=== PATIENT | female | born 1990 | race Caucasian/White ===

== ENCOUNTER → 2023-04-12 10:26 | Outpatient (BNVA) | payer OTHER, SELFPAY | PROVIDERS: Visit Provider Physician Assistant Surgical ==

== ENCOUNTER → 2023-08-02 08:06 | Outpatient (BNVA) | payer OTHER, SELFPAY | PROVIDERS: PCP Internal Medicine; Visit Provider Surgery ==

== ENCOUNTER → 2023-09-02 07:59 | Outpatient (BNVA) | payer OTHER, SELFPAY | PROVIDERS: PCP Internal Medicine; Visit Provider Surgery ==

== ENCOUNTER → 2023-09-09 08:57 | Outpatient (BNVA) | payer OTHER, SELFPAY | PROVIDERS: PCP Internal Medicine; Visit Provider Counselor Mental Health ==

== ENCOUNTER → 2023-10-02 08:58 | Outpatient (BNVA) | payer OTHER, SELFPAY | PROVIDERS: PCP Internal Medicine; Visit Provider Surgery ==

== ENCOUNTER → 2023-10-14 08:53 | Outpatient (BNVA) | payer OTHER, SELFPAY | PROVIDERS: PCP Internal Medicine; Visit Provider Counselor Mental Health ==

== ENCOUNTER → 2023-10-25 08:27 | Outpatient (BNVA) | payer OTHER, SELFPAY | PROVIDERS: PCP Internal Medicine; Visit Provider Surgery ==

== ENCOUNTER → 2024-02-24 12:42 | Outpatient (BNVA) | payer OTHER, SELFPAY | PROVIDERS: PCP Internal Medicine; Visit Provider Physician Assistant Surgical ==

== ENCOUNTER → 2024-03-16 12:26 | Outpatient (BNVA) | payer OTHER, SELFPAY | PROVIDERS: PCP Internal Medicine; Visit Provider Physician Assistant Surgical ==

== ENCOUNTER → 2024-05-13 09:12 | Outpatient (BNVA) | payer OTHER, SELFPAY | PROVIDERS: PCP Internal Medicine; Visit Provider Physician Assistant Surgical ==

== ENCOUNTER → 2024-08-24 11:12 | Outpatient (BNVA) | payer OTHER, SELFPAY | PROVIDERS: PCP Internal Medicine; Visit Provider Physician Assistant Surgical ==

== ENCOUNTER 2025-01-05 10:40 | Outpatient (AMB) | payer OTHER, SELFPAY ==
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
--- NOTE | 2025-01-05 18:14 | MHC.OFFVISWM ---
VS Expanded 01/05/25 18:20 Height 5 ft 5 in Weight 134 lb 4 oz BMI 22.3 Body Fat % 24.2 Body Fat Mass 32.5 Fat Free Mass 102 Visceral Fat Rating 5 Body Water % 52 Body Water Mass 69.8 Basal Metabolic Rate/Score 1,381 Intake Visit Reasons: TV Pre Op Panniculectomy 01/20/25 Allergies Cephalosporins Allergy (Verified 01/05/25 18:22) Abdominal Pain erythromycin base [From Pediazole] Allergy (Verified 01/05/25 18:22) Unresponsive Macrolide Antibiotics Allergy (Verified 01/05/25 18:22) Unknown Penicillins [PCN] Allergy (Verified 01/05/25 18:22) Unknown strawberry Allergy (Verified 01/05/25 18:22) Hives sulfisoxazole [From Pediazole] Allergy (Verified 01/05/25 18:22) Unresponsive Augmentin Allergy (Mild, Uncoded 01/05/25 18:22) hives Medication List - Last Reconciled 01/05/25 by Mikie Moore MD bupropion HCl XL 150 mg PO DAILY ciprofloxacin HCl (Cipro) 500 mg PO Q12H clotrimazole 1% 1 appl topical BID docusate sodium (Colace) 100 mg PO DAILY lorazepam 1 mg PO DAILY PRN melatonin 10 mg PO BEDTIME PRN nicotine 1 patch topical DAILY ondansetron 4 mg PO Q12H topiramate 75 mg PO BEDTIME HPI HPI TV Pre Op Panniculectomy 01/20/25: Details: Start time: 2.15pm, End time: 2.45PM I spent 25 minutes speaking with the patient on the phone plus an additional 5 minutes reviewing and updating records for a total of 30 minutes [facility] Medical History (Updated 12/30/24 @ 14:50 by Lorenza Cuevas) Arthritis Back pain Abnormal Pap smear of cervix Constipation Kidney stones Migraines Cough Scoliosis Hypertension Rheumatoid arthritis Insomnia Anxiety Depression DJD (degenerative joint disease) GERD (gastroesophageal reflux disease) Asthma BMI 38.0-38.9,adult Surgical History (Updated 01/05/25 @ 10:18 by Virginia Grider RN) History of sleeve gastrectomy (11/21/23) History of loop electrical excision procedure (LEEP) BMI 35.0-35.9,adult Hx of tonsillectomy History of ear surgery Family History (System 12/30/24 @ 14:50 by Lorenza Cuevas) Mother No problems noted. Father Diabetes Social History (System 12/30/24 @ 14:50 by Lorenza Cuevas) Household Members: Children Housing: House Are you a primary acute care surgeon to a significant other at home: No Do you presently have visiting nurse or other home services: No Alcohol intake: current Alcohol intake frequency: does not drink Patient Tobacco Use Status: Former Tobacco user Tobacco use type: Smokeless Tobacco Second Hand Smoke Exposure: No Telehealth Telehealth Telehealth Platform: Telephone Location of provider rendering services: practice address Location of patient: address on file Patient Identification confirmed using: Name, : Yes Telehealth method: voice only Patient verbally consented to treatment: Yes Patient verbally consented to billing insurance company: Yes Patient informed of any privacy concerns related to visit: Yes Minutes spent on Phone/Video with Pt.: 30 Assessment & Plan Assessment & Plan (1) Excess skin: Code(s): L98.7 - Excessive and redundant skin and subcutaneous tissue Category: Medical Plan: 1. Plan for panniculectomy. Risks of infection, bleeding, asymmetry, wound dehiscence and blood clots were discussed with the patient. 2. You will have a drain the abdomen that may stay a few weeks before it may be removed 3. You will need to be doing sponge baths the first 1-2 weeks. No showers. You need to have help at home to get you up and limit your activities as much as possible for at least the 4-6 weeks after surgery 4. We will arrange for a visiting nurse to come at home to help you with dressing changes and send me pictures of the procedures. We will send at your home supplies for the dressing changes. 5. Change nutritional plan to three premade shakes (mix HALF bottle with 4oz almond milk for each shake), one Quest protein bar and one meal (4 forks of protein and 4 forks of salad or vegetables). This will improve weight loss and healing after surgery. 6. Continue all vitamins 7. Do blood work not fasting any day between Saturday01/11/25 and Saturday01/16/25 and crab picker the antibiotic prescription from your pharmacy 8. Risks and complications were discussed the possibility of bleeding that may require transfusion, loss of the umbilicus, wound dehiscence or infection, dog ears , flap asymmetry. We also discussed the importance of strict avoidance of weight lifting. 9. Avoid aspirin, motrin, ibuprofen, Aleve, Advil, Naproxyn. Only Tylenol is OK Orders: Orders Prothrombin Time INR Today K91.2 - Postsurgical malabsorption, not elsewhere classified, Z90.3 - Acquired absence of stomach [part of] Type and Screen Today K91.2 - Postsurgical malabsorption, not elsewhere classified, Z90.3 - Acquired absence of stomach [part of] IRON PROFILE Today K91.2 - Postsurgical malabsorption, not elsewhere classified, Z90.3 - Acquired absence of stomach [part of] Zinc Today K91.2 - Postsurgical malabsorption, not elsewhere classified, Z90.3 - Acquired absence of stomach [part of] Vitamin D 25-OH Total Today K91.2 - Postsurgical malabsorption, not elsewhere classified, Z90.3 - Acquired absence of stomach [part of] Vitamin B12 Today K91.2 - Postsurgical malabsorption, not elsewhere classified, Z90.3 - Acquired absence of stomach [part of] Vitamin B1 Today K91.2 - Postsurgical malabsorption, not elsewhere classified, Z90.3 - Acquired absence of stomach [part of] Vitamin A Today K91.2 - Postsurgical malabsorption, not elsewhere classified, Z90.3 - Acquired absence of stomach [part of] Comprehensive Met. Panel Today K91.2 - Postsurgical malabsorption, not elsewhere classified, Z90.3 - Acquired absence of stomach [part of] Partial Thromboplastin Time Today K91.2 - Postsurgical malabsorption, not elsewhere classified, Z90.3 - Acquired absence of stomach [part of] Complete Blood Count Auto Diff Today K91.2 - Postsurgical malabsorption, not elsewhere classified, Z90.3 - Acquired absence of stomach [part of] C Reactive Protein Today K91.2 - Postsurgical malabsorption, not elsewhere classified, Z90.3 - Acquired absence of stomach [part of] Hemoglobin A1c Today K91.2 - Postsurgical malabsorption, not elsewhere classified, Z90.3 - Acquired absence of stomach [part of] Ferritin Today K91.2 - Postsurgical malabsorption, not elsewhere classified, Z90.3 - Acquired absence of stomach [part of] Medications: New ondansetron 4 mg PO Q12H 20 tabs 0RF nausea and vomiting R11.0 - Nausea ciprofloxacin HCl (Cipro) 500 mg PO Q12H 60 tabs 2RF L03.90 - Cellulitis, unspecified
[2025-01-05 18:20] VITALS: BMI 22.3
== END 2025-01-05 18:24 | disposition home or self-care (01) ==
LOC: HO.HBS 10:40
PROVIDERS: PCP Internal Medicine; Visit Provider Surgery
DX: L98.7 Excessive and redundant skin and subcutaneous tissue (principal)
CPT/HCPCS: 99499

== ENCOUNTER → 2025-01-05 10:40 | Outpatient (BNVA) | payer OTHER, SELFPAY | PROVIDERS: PCP Internal Medicine; Visit Provider Surgery | DX: K91.2 Postsurgical malabsorption, not elsewhere classified (principal); Z90.3 Acquired absence of stomach [part of]; L03.90 Cellulitis, unspecified; R11.0 Nausea ==

== ENCOUNTER 2025-01-15 09:35 | Outpatient (REF) | payer OTHER, SELFPAY ==
[2025-01-15 10:46] LABS: MANUAL DIFF FLAG NO
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
[2025-01-15 11:45] LABS: Basophils Percent Auto 0.9 % (0-2); Eosinophils Absolute Auto 0.1 X10*3/uL (0.0-0.4); Eosinophils Percent Auto 2.6 % (0-4); Hematocrit 29.7 % (37.0-47.0); Hemoglobin 8.9 g/dl (12.0-16.0); Imm Gran Abs Auto 0.01 X10*3/uL (0.00-0.03); Imm Gran Pct Auto 0.3 % (0.0-0.4); Lymphocytes Absolute Auto 1.2 X10*3/uL (1.2-4.9); Lymphocytes Percent Auto 33.7 % (20-40); Mean Corpuscular Hemoglobin 22.2 pg (27.0-33.0); Mean Corpuscular Volume 74.1 fL (80.0-98.0); Mean Platelet Volume 10.2 fL (9.4-12.3); Monocytes Absolute Auto 0.3 X10*3/uL (0.1-1.2); Monocytes Percent Auto 7.8 % (2-11); Neutrophils Absolute Auto 1.9 x10*3/uL (2.0-8.3); Neutrophils Percent Auto 54.7 % (45-73); Platelet Count 207 X10*3/uL (160-400); Red Blood Count 4.01 X10*6/uL (4.20-5.50); Red Cell Distribution Width 15.7 % (11.0-16.0); White Blood Count 3.5 X10*3/uL (4.8-10.8)
[2025-01-15 11:47] LABS: Prothrombin Time 11.3 SEC (10.9-12.4)
[2025-01-15 11:49] LABS: Partial Thromboplastin Time 28.7 SEC (26.0-36.8)
[2025-01-15 12:36] LABS: Estimated Average Glucose 108 mg/dL; Hemoglobin A1c % 5.4 % (<6.0)
[2025-01-15 12:41] LABS: Alanine Aminotransferase 19 U/L (0-31); Albumin Level 4.3 g/dL (3.5-5.0); Alkaline Phosphatase 48 U/L (39-117); Anion Gap 9 (12-20); Aspartate Amino Transferase 18 U/L (5-31); Bilirubin Total 0.3 mg/dL (0.0-1.0); Blood Urea Nitrogen 19 mg/dL (9-16); C Reactive Protein < 0.04 mg/dL (< or = 0.50); Carbon Dioxide 23 mmol/L (22-29); Chloride 114 mmol/L (96-108); Estimated Glomerular Filt Rate > 60; Ferritin < 2 ng/mL (10-122); Glucose Random 76 mg/dL (60-115); Iron 11 mcg/dL (30-160); Percent Iron Saturation 3 % (15-50); Potassium 3.6 mmol/L (3.3-5.1); Sodium 142 mmol/L (135-145); Total Iron Binding Capacity 324 mcg/dL (228-428); Total Protein 6.9 g/dL (6.5-8.0); Unsaturated Iron Binding 313 ug/dL; Vitamin D 25-OH Total 48.2 ng/mL (>30)
[2025-01-15 13:05] LABS: Vitamin B12 343 pg/mL (200-900)
[2025-01-19 15:48] LABS: Zinc 74 mcg/dL (60-130)
[2025-01-20 00:14] LABS: Vitamin A 86 mcg/dL (38-98)
[2025-01-24 11:44] LABS: Vitamin B1 22 nmol/L (8-30)
== END 2025-01-15 09:36 | disposition home or self-care (01) ==
LOC: HO.LAB 09:35
PROVIDERS: PCP Internal Medicine; Visit Provider Surgery
DX: K91.2 Postsurgical malabsorption, not elsewhere classified (principal); Z90.3 Acquired absence of stomach [part of]
CPT/HCPCS: 36415; 80053; 82306; 82607; 82728; 83036; 83540; 84425; 84590; 84630; 85025; 85610; 85730; 86140

== ENCOUNTER 2025-01-20 07:22 | Day surgery (SDC) | payer OTHER, SELFPAY ==
[2025-01-06 11:13] VITALS: BMI 22.3
--- NOTE | 2025-01-19 08:40 | HO.ANESPROP2 ---
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 (Acute) BMI 32.0-32.9,adult (Acute) Generalized anxiety disorder (Acute) Vitamin B12 deficiency (Acute) Obesity (Acute) Hypertension (Acute) Rheumatoid arthritis (Acute) Insomnia (Acute) Anxiety (Acute) Depression (Acute) DJD (degenerative joint disease) (Acute) GERD (gastroesophageal reflux disease) (Acute) Asthma (Acute) Past Medical History Medical History Arthritis Back pain Abnormal Pap smear of cervix Constipation Kidney stones Migraines Cough Scoliosis Hypertension Rheumatoid arthritis Insomnia Anxiety Depression DJD (degenerative joint disease) GERD (gastroesophageal reflux disease) Asthma BMI 38.0-38.9,adult Family History Family History Mother No problems noted. 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 If so, by whom?: No Advance Directives: No Advance Directives Information Provided: Yes Advance Directives on File: No Recently lost weight without trying: No Patient : No FDLMP: 01/04/2025 : No Poor oral hygiene: No Meds Allergies Allergy/AdvReac Type Severity Reaction Status Date / Time erythromycin base Allergy Severe Unresponsive, Verified 01/06/25 11:09 [From Pediazole] cold, clammy (as an infant) sulfisoxazole Allergy Severe Unresponsive, Verified 01/06/25 11:23 [From Pediazole] cold, clammy (as an ) strawberry Allergy Intermediate Hives Verified 01/06/25 11:09 Cephalosporins Allergy Abdominal Verified 01/05/25 18:22 Pain Macrolide Antibiotics Allergy Unknown Verified 01/05/25 18:22 Penicillins [PCN] Allergy Unknown Verified 01/05/25 18:22 Augmentin Allergy Intermediate hives Uncoded 01/06/25 11:09 Home Medications ?Medication ?Instructions ?Recorded ?Confirmed ?Last Taken ?Type bupropion HCl 150 mg 24 hr tablet, 150 mg PO DAILY 07/31/23 01/06/25 11/16/23 History extended release lorazepam 1 mg tablet 1 mg PO DAILY PRN Anxiety 07/31/23 01/06/25 Unknown History nicotine 14 mg/24 hr daily 1 patch topical DAILY 07/31/23 01/06/25 Unknown History transdermal patch melatonin 10 mg tablet 10 mg PO BEDTIME PRN Insomnia 11/15/23 01/06/25 11/20/23 History topiramate 50 mg tablet 100 mg PO BEDTIME 05/05/24 01/06/25 Unknown History Exam Height,Weight and Vital Signs: Height 5 ft 5 in Weight 60.781 kg Pertinent Lab Results Pertinent Lab Results: Laboratory Tests 01/15/25 10:36 Blood Type O Positive Antibody Screen NEGATIVE Laboratory Tests 01/15/25 10:44 WBC 3.5 L Hgb 8.9 L D Hct 29.7 L Plt Count 207 Sodium 142 Potassium 3.6 Chloride 114 H Carbon Dioxide 23 BUN 19 H Creatinine 0.70 Assessment and Plan Assessment Anesthesia Assessment: Chart Reviewed Final Anesthetic Review Family History of Problems with Anesthesia: No History of Problems with Anesthesia: No Documented by User: Chhaya Siegel MD 01/20/25 09:39 PMFSH Past Medical History Medical History Arthritis Back pain Abnormal Pap smear of cervix Constipation Kidney stones Migraines Cough Scoliosis Hypertension Rheumatoid arthritis Insomnia Anxiety Depression DJD (degenerative joint disease) GERD (gastroesophageal reflux disease) Asthma BMI 38.0-38.9,adult Family History Family History Mother No problems noted. 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 If so, by whom?: No Advance Directives: No Advance Directives Information Provided: Yes Advance Directives on File: No Recently lost weight without trying: No Patient : No FDLMP: 01/04/2025 : No Poor oral hygiene: No Meds Allergies Allergy/AdvReac Type Severity Reaction Status Date / Time erythromycin base Allergy Severe Unresponsive, Verified 01/06/25 11:09 [From Pediazole] cold, clammy (as an ) sulfisoxazole Allergy Severe Unresponsive, Verified 01/06/25 11:23 [From Pediazole] cold, clammy (as an infant) strawberry Allergy Intermediate Hives Verified 01/06/25 11:09 Cephalosporins Allergy Abdominal Verified 01/05/25 18:22 Pain Macrolide Antibiotics Allergy Unknown Verified 01/05/25 18:22 Penicillins [PCN] Allergy Unknown Verified 01/05/25 18:22 Augmentin Allergy Intermediate hives Uncoded 01/06/25 11:09 Home Medications ?Medication ?Instructions ?Recorded ?Confirmed ?Last Taken ?Type bupropion HCl 150 mg 24 hr tablet, 150 mg PO DAILY 07/31/23 01/06/25 11/16/23 History extended release lorazepam 1 mg tablet 1 mg PO DAILY PRN Anxiety 07/31/23 01/06/25 Unknown History nicotine 14 mg/24 hr daily 1 patch topical DAILY 07/31/23 01/06/25 Unknown History transdermal patch melatonin 10 mg tablet 10 mg PO BEDTIME PRN Insomnia 11/15/23 01/06/25 11/20/23 History topiramate 50 mg tablet 100 mg PO BEDTIME 05/05/24 01/06/25 Unknown History Exam Airway Mallampati Class: II TM Dist: >3cm Neck ROM: Full Heart: rrr Lungs: cta Assessment and Plan Assessment Anesthesia Assessment: Anesthesia Plan Discussed Final Anesthetic Review NPO: Yes ASA Class: III (rheumatoid arthritis) Final Preanesthetic Review: No Changes in Pt Med Stat, Meds/Allgs Chart Reviewed, Consent Obtained/Reviewed and Anes Risks/Benef Reviewed Patient Risk: Intermediate Procedure Risk: Intermediate Anesthetic Plan Anesthetic Plan: GA Disposition: Standard PACU
[2025-01-20] VITALS (13 sets, daily range): BP systolic 94–108; BP diastolic 47–69; PULSE 67–102; RESP 15–17; TEMP 36.3–37.2; O2SAT 97–100
[2025-01-20 07:59] LABS: UPreg QC Valid YES; Urine Pregnancy NEGATIVE (NEGATIVE)
[2025-01-20] MEDS: Lactated Ringers 1,000 ML 100 ML IVCONT (08:16)
--- NOTE | 2025-01-20 09:51 | MHC.SHP ---
Pre-Procedural Eval Section A - 24 Hr Update-Section A only Date of Service: 01/20/25 The patient is an INPATIENT: No The patient has been examined within 24 hours of the surgical procedure. The History & Physical has been completed within 30 days and I have reviewed it.: Yes Section B - Complete if H&P > 30 days Chief Complaint: Excessive and redundant skin and subcutaneous tiss Relevant Family History (Specify if Yes): No Relevant Social History: None Present Medications: None Medical History: No relevant PMH History of Previous Operations: Relevant previous surgery/procedure and date(s) (Laparoscopic sleeve gastrectomy) Allergies: Allergies Allergy/AdvReac Type Severity Reaction Status Date / Time erythromycin base Allergy Severe Unresponsive, Verified 01/06/25 11:09 [From Pediazole] cold, clammy (as an ) sulfisoxazole Allergy Severe Unresponsive, Verified 01/06/25 11:23 [From Pediazole] cold, clammy (as an infant) strawberry Allergy Intermediate Hives Verified 01/06/25 11:09 Cephalosporins Allergy Abdominal Verified 01/05/25 18:22 Pain Macrolide Antibiotics Allergy Unknown Verified 01/05/25 18:22 Penicillins [PCN] Allergy Unknown Verified 01/05/25 18:22 Augmentin Allergy Intermediate hives Uncoded 01/06/25 11:09 Review of Systems Sugical H&P ROS: Negative: Constitution, Cardiovascular, Respiratory, Neurological, Psychiatric, Hem-Onc, Allergic/Immunologic, Gastrointestinal, Genitourinary, Musculoskeletal, Integumentary, Endocrine and Eyes/Ears/Nose/Throat Exam Surgical H&P Exam: Normal: HEENT, Normal: Heart, Normal: Lungs, Normal: Extremities, Normal: Abdomen, Normal: Skin and Normal: Neurological Plan Diagnosis/Plan: Unchanged I have reviewed the history and physical and performed a pertinent physical examination on my patient. No changes have occurred unless specified. Time Spent With Patient Time: Total time managing care of this patient today ____ minutes.
--- NOTE | 2025-01-20 10:00 | P.BOP_ITS ---
Brief Operative Note Date of Service: 01/20/25 Pre-op diagnosis: Excess skin Post-op diagnosis: same Procedure: PROCEDURE: Panniculectomy with umbilical transposition and bilateral subcutaneous fat flaps INDICATION: This a 34 year old female who underwent laparoscopic sleeve gastrectomy on 11/21/2023. She had an excellent result achieving a BMI of 22.2 kg/m2 with a total weight loss of 93lbs, or 40.7% of her TBWL. As a result, she has developed panniculitis which has not resolved despite continuous use of clotrimazole ointment as well as skin irritation. On exam she has extreme skin laxity due to massive weight loss, with the abdominal pannus completely hanging 4cm below the pubis. Panniculectomy was recommended. We discussed the two options for the panniculectomy of using a combined vertical and horizontal incisions or just a horizontal (bikini) incision. It was my recommendation to do only horizontal incision based on her body habitus and skin laxity. The patient agreed with this. Risks and complications were discussed with the patient including bleeding, infection, umbilical loss, flap necrosis, asymmetry, dehiscence, seroma, VTE. The patient understood the risks and was in agreement to proceed with surgery. PROCEDURE: The incisions were appropriately marked at the preop area with the patient standing and laying down. After induction of general anesthesia a Sprague catheter and pneumatic compression devices were placed. The patient was prepped and draped in the usual sterile manner and the incisions were marked again and confirmed. The skin was infiltrated with lidocaine and epinephrine. The #10 blade scalpel was used for the large incisions and the #15 blade scalpel for the umbilicus. Cautery was used to divide the subcutaneous tissues until the fascia was identified. Then I used the cautery to separate the pannus from the fascia. The inferior incision was made initially and I mobilized the flap for a several centimeters cephalad to the umbilicus. The umbilicus was incised circumferentially and detached from the surrounding tissues all the way to the fascia while its stalk was preserved. With the patient in reflex position I confirmed that the skin flaps were appropriate and would allow for the tissues to come together with reasonable tension. At that point a horizontal incision was made 4 cm above the umbilicus. #10 blade was used for the skin, cautery for the dermis and for the remaining tissues. A subcutaneous fat flap was raised from the upper skin flap in order to fill the space under the skin and support the closure of the two flaps. In addition the inferior flap was mobilized caudally for a few centimeters to create a space for the subcutaneous fat flap as well as relieve tension from the closure. A circumferential incision was made at the area where the umbilicus would be re-implanted. The umbilicus was appropriately oriented and was delivered through the defect and was secured in place with a Hale. No bleeding was noted anywhere. One ARUNA drain was placed from the left corner of the horizontal incision across the wound and was secured in place with a silk suture. The subcutaneous fat flap was secured under the inferior flap with several interrupted 3.0 Monocryl sutures. The two flaps were brought together and were attached at the midline of the horizontal incision with a #3.0 Monocryl suture. At that point the umbilicus was properly oriented and was re-approximated to the skin with 8 interrupted 3.0 Monocryl sutures. In a similar fashion the skin flaps were re-approximated with multiple 3.0 Monocryl sutures. The skin was closed in all incisions and umbilicus with 4.0 Monocryl sutures. Steri-strips, xeroform gauzes and gauzes were used to cover the incisions. An abdominal binder was also placed. The was awaken and was transferred to the recover room in a stable condition. I was present and performed the entire procedure. Kathy Mullins was the operations administrative assistant. Alejo Moore MD, PhD, FACS Surgeon: Mikie Moore MD Surgeon: Mikie Moore MD Anesthesia: GETA and local Was an Printed Circuit Board Designer used for this Procedure?: No Printed Circuit Board Designer: Colin Mullins Estimated blood loss (mL): 10 IV fluids (mL): 1,250 Urine output (mL): 0 (No Sprague to record output) Pathology: other (Abdominal pannus) Condition: stable Disposition: PACU
--- NOTE | 2025-01-20 10:00 | P.F2F_ITS ---
Service Date Service Date: 01/20/25 Encounter Date of encounter: 01/20/25 Reasons for Services Signs and symptoms assessed: s/p panniculectomy Reason for nursing home: postoperative assessment and/or care Homebound: Leaving the home is medically contraindicated at this time without the asist of a device and/or another person due th the listed conditions above and below. Reason homebound: pain with transfers and unable to drive Certification: Based on the above findings, I certify that this patient is confined to the home and needs intermittent nursing home care, physical therapy and/or speech therapy, or continues to need occupational therapy. The patient is under my care, and I have initiated the establishment of the plan of care. The patient will be followed by a physician who will periodically review the plan of care. Time Spent With Patient Time: Total time managing care of this patient today ____ minutes.
[2025-01-20] MEDS: levoFLOXacin/D5W 250 MG/50 ML PIGGYBACK 50 MG IV ×2 (10:30→11:08)
[2025-01-20] MEDS: ondansetron HCL 4 MG/2 ML VIAL IVPUSH (15:23)
[2025-01-20] MEDS: Acetaminophen 325 MG TABLET 650 MG PO (17:06)
== END 2025-01-20 17:23 | disposition home or self-care (01) ==
PROVIDERS: Nurse Practitioner; PCP Internal Medicine; Visit Provider Surgery
PROC: 0JB80ZZ Excision of Abdomen Subcutaneous Tissue and Fascia, Open Approach (ICD-10-PCS; CPT 15830; principal; 2025-01-20 10:10)
DX: L98.7 Excessive and redundant skin and subcutaneous tissue (principal); M79.3 Panniculitis, unspecified; K91.2 Postsurgical malabsorption, not elsewhere classified; Z90.3 Acquired absence of stomach [part of]; R63.4 Abnormal weight loss; Z68.22 Body mass index [BMI] 22.0-22.9, adult; Z98.84 Bariatric surgery status; I10 Essential (primary) hypertension; K21.9 Gastro-esophageal reflux disease without esophagitis; J45.909 Unspecified asthma, uncomplicated; M06.9 Rheumatoid arthritis, unspecified; Z79.899 Other long term (current) drug therapy; G47.33 Obstructive sleep apnea (adult) (pediatric); Z88.0 Allergy status to penicillin; Z88.1 Allergy status to other antibiotic agents; Z88.2 Allergy status to sulfonamides; Z87.891 Personal history of nicotine dependence
CPT/HCPCS: 15830; 15847; 81025; 86850; 86900; 86901; 88304; C9088; J0131; J1100; J1171; J1756; J1956; J2003; J2004; J2371; J2405; J2704; J3010; J3370

== ENCOUNTER → 2025-01-20 07:22 | Outpatient (BNV) | payer OTHER, SELFPAY | PROVIDERS: PCP Internal Medicine; Visit Provider Physician Assistant Surgical | DX: M79.3 Panniculitis, unspecified (principal); Z98.84 Bariatric surgery status | CPT/HCPCS: 15830; G0180 ==

== ENCOUNTER 2025-01-21 14:17 | Inpatient (IN) | payer OTHER, SELFPAY ==
[2025-01-21 14:31] VITALS: BP 100/52; PULSE 77; RESP 16; TEMP 37.2; O2SAT 100; BMI 22.6
--- NOTE | 2025-01-21 14:41 | ED_ITS ---
HPI - Nausea/Vomiting/Diarrhea General Chief complaint: Nausea/Vomiting/Diarrhea Stated complaint: dehydration surgery yesterday Time Seen by Provider: 01/21/25 15:43 History of Present Illness ED Provider: Kassandra MUNGIUA Narrative: The patient is a 34-year-old female who had bariatric surgery in November. Yesterday she had a panniculectomy as an outpatient. Since getting home she has been eating poorly. She has been very nauseated. She contacted the bariatric surgery team and was advised to come to the emergency room. Here the patient was seen by ARON Sharpe, who recommended IV fluids and a dose of aprepitant. There has been no fever. Related Data Home Medications ?Medication ?Instructions ?Recorded ?Confirmed bupropion HCl 150 mg 24 hr tablet, 150 mg PO DAILY 07/31/23 01/06/25 extended release lorazepam 1 mg tablet 1 mg PO DAILY PRN Anxiety 07/31/23 01/06/25 nicotine 14 mg/24 hr daily 1 patch topical DAILY 07/31/23 01/06/25 transdermal patch melatonin 10 mg tablet 10 mg PO BEDTIME PRN Insomnia 11/15/23 01/06/25 topiramate 50 mg tablet 100 mg PO BEDTIME 05/05/24 01/06/25 Previous Rx's ?Medication ?Instructions ?Recorded docusate sodium 100 mg capsule 100 mg PO DAILY #90 caps 12/15/23 (Colace) clotrimazole 1 % topical cream 1 appl topical BID #90 grams 09/07/24 ciprofloxacin HCl 500 mg tablet 500 mg PO Q12H #60 tabs 01/05/25 (Cipro) ondansetron 4 mg disintegrating 4 mg PO Q12H nausea and vomiting 01/05/25 tablet #20 tabs Allergies Allergy/AdvReac Type Severity Reaction Status Date / Time erythromycin base Allergy Severe Unresponsive, Verified 01/21/25 14:35 [From Pediazole] cold, clammy (as an ) sulfisoxazole Allergy Severe Unresponsive, Verified 01/21/25 14:35 [From Pediazole] cold, clammy (as an infant) strawberry Allergy Intermediate Hives Verified 01/21/25 14:35 Cephalosporins Allergy Abdominal Verified 01/21/25 14:35 Pain Macrolide Antibiotics Allergy Unknown Verified 01/21/25 14:35 Penicillins [PCN] Allergy Unknown Verified 01/21/25 14:35 Augmentin Allergy Intermediate hives Uncoded 01/06/25 11:09 Review of Systems 2 Review of Systems: Yes all other systems are reviewed and are negative [facility] Past Medical History Medical History Arthritis Back pain Abnormal Pap smear of cervix Constipation Kidney stones Migraines Cough Scoliosis Hypertension Rheumatoid arthritis Insomnia Anxiety Depression DJD (degenerative joint disease) GERD (gastroesophageal reflux disease) Asthma BMI 38.0-38.9,adult Surgical History 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 Father Diabetes Social History Social History Household Members: Children Housing: House Are you a primary healthcare economics manager to a significant other at home: Yes (children, will have family help post-op) Do you presently have visiting nurse or other home services: No Alcohol intake: current Alcohol intake frequency: holidays/special occasions only Patient Tobacco Use Status: Former Tobacco user Tobacco use type: Cigarette Smoked in Last 30 Days: No Second Hand Smoke Exposure: No Use of substances other than those prescribed or required for medical reasons: No Advance Directives: Yes Advance Directives Information Provided: Yes Advance Directives on File: No Patient : No Physical Exam 2 Vital Signs: Vital Signs: Last Vital Signs Temp 99.0 F 01/21/25 20:17 Pulse 74 01/21/25 20:17 Resp 16 01/21/25 20:17 BP 95/62 01/21/25 20:17 Pulse Ox 100 01/21/25 20:17 O2 Del Method Room Air 01/21/25 20:17 BMI result Body Mass Index 22.6 Const: Other: The patient is awake and alert but looks tired and worn out. HEENT: Other: Face is symmetrical. Mucous membranes moist. Eyes: General: appearance normal, both eyes and all related structures Neck: Neck: Yes normal visual inspection and Yes full ROM Resp: Effort & Inspection: normal respiratory effort Auscultation: clear to auscultation bilaterally Cardio: Rate: regular rate Rhythm: regular rhythm Heart sounds: S1 normal heart sound present and S2 normal heart sound present GI: Other: The patient is wearing an abdominal binder on her abdomen. She has some surgical drains. She has some mild generalized tenderness but does not seem to have an acute abdomen. Skin: Other: Skin is pale and dry Neuro: Other: The patient is awake and alert but seems tired. Cranial nerves are intact. Moves extremities symmetrically. Extrem: Other: No peripheral edema, no calf swelling or tenderness. Course Course Course Narrative: This is an RME: Additional HPI, ROS, PE not included below will be deferred to primary provider. RME assessment and note performed by: Cassandra Mendieta PA-C This is a 34-year-old female who presents emergency department with concerns for nausea and vomiting. Patient had a panniculectomy yesterday and has been unable to tolerate liquids or foods since. Also endorses headache. Colin hai gave a expect, recommending IV fluids 2-3 L, and Aponvie 32 mg / 4.4 ml (long acting anti-emetic). If she can tolerate PO - can go home. If not, admit. Colin Mullins. Message sent to Colin Mullins to inform him that patient has arrived to the ED. Plan: Labs, further ER eval needed. Medications Administered Generic Name Dose Route Start Last Admin Trade Name Freq PRN Reason Stop Dose Admin Lactated Ringer's 1,000 mls @ 999 mls/hr 01/21/25 20:00 01/21/25 20:20 Lr IV 01/21/25 21:00 999 mls/hr .Q1H1M KEYUR Administration Discontinued Medications Generic Name Dose Route Start Last Admin Trade Name Freq PRN Reason Stop Dose Admin Aprepitant 32 mg 01/21/25 17:00 01/21/25 16:33 Aprepitant 32 Mg/4.4 Ml Vial IVPUSH 01/21/25 17:01 32 mg ONCE ONE Administration Sodium Chloride 1,000 mls @ 999 mls/hr 01/21/25 15:30 01/21/25 15:57 Ns IV 01/21/25 17:30 Infused .Q1H1M KEYUR Infusion Lactated Ringer's 1,000 mls @ 999 mls/hr 01/21/25 16:00 01/21/25 18:45 Lr IV 01/21/25 17:00 Infused .Q1H1M KEYUR Infusion Lactated Ringer's 1,000 mls @ 999 mls/hr 01/21/25 16:00 01/21/25 18:45 Lr IV 01/21/25 17:00 Infused .Q1H1M KEYUR Infusion Acetaminophen 1,000 mg in 100 mls @ 400 mls/hr 01/21/25 17:30 01/21/25 18:45 Ofirmev IV 01/21/25 17:44 Infused ONCE ONE Infusion Medical Decision Making Medical Decision Making MDM Narrative: The patient is a 34-year-old woman who had a panniculectomy yesterday by the bariatric surgery team. Since getting home she has had a lot of nausea and vomiting. She comes in today because of fatigue and inability to tolerate oral intake. The patient was given IV fluids and antiemetics. She continues to be nauseated even with a small sips of liquids. She will be admitted for further management. Lab Data 01/21/25 14:41 01/21/25 14:41 Labs: Lab Results 01/21/25 Range/Units 14:41 WBC 6.4 (4.8-10.8) X10*3/uL RBC 3.72 L (4.20-5.50) X10*6/uL Hgb 8.2 L (12.0-16.0) g/dl Hct 27.2 L (37.0-47.0) % MCV 73.1 L (80.0-98.0) fL MCH 22.0 L (27.0-33.0) pg MCHC 30.1 L (31.0-35.0) g/dl RDW 16.0 (11.0-16.0) % Plt Count 153 L D (160-400) X10*3/uL MPV 9.4 (9.4-12.3) fL Immature Gran % (Auto) 0.3 (0.0-0.4) % Neut % (Auto) 81.1 H (45-73) % Lymph % (Auto) 10.6 L (20-40) % Sol[place] % (Auto) 7.8 (2-11) % Eos % (Auto) 0.0 (0-4) % Baso % (Auto) 0.2 (0-2) % Lymph # (Auto) 0.7 L (1.2-4.9) X10*3/uL [place] # (Auto) 0.5 (0.1-1.2) X10*3/uL Eos # (Auto) 0.0 (0.0-0.4) X10*3/uL Baso # (Auto) 0.0 (0.0-0.2) X10*3/uL Abs Immat Gran (auto) 0.02 (0.00-0.03) X10*3/uL Absolute Neuts (auto) 5.2 (2.0-8.3) x10*3/uL Absolute Nucleated RBC 0.000 (0.0-0.012) X10*3/uL Nucleated RBC % (auto) 0.0 (0.0-0.2) /100WBC Sodium 142 (135-145) mmol/L Potassium 3.5 (3.3-5.1) mmol/L Chloride 116 H (96-108) mmol/L Carbon Dioxide 21 L (22-29) mmol/L Anion Gap 9 L (12-20) BUN 7 L (9-16) mg/dL Creatinine 0.70 (0.5-1.4) mg/dL Estim Creat Clear Calc 101.8 Estimated GFR > 60 Random Glucose 92 (60-115) mg/dL Calcium 8.9 (8.4-10.2) mg/dL Magnesium 1.9 (1.6-2.6) mg/dL Total Bilirubin 0.3 (0.0-1.0) mg/dL AST 14 (5-31) U/L ALT 14 (0-31) U/L Alkaline Phosphatase 42 (39-117) U/L Total Protein 6.8 (6.5-8.0) g/dL Albumin 4.1 (3.5-5.0) g/dL Beta HCG, Quant < 2 mIU/mL Discharge Plan Discharge Clinical Impression: Post-operative nausea and vomiting Patient Disposition: Admitted As Inpatient Print Language: Canadian
[2025-01-21 14:48] LABS: MANUAL DIFF FLAG NO
[2025-01-21 14:50] LABS: Basophils Percent Auto 0.2 % (0-2); Hematocrit 27.2 % (37.0-47.0); Hemoglobin 8.2 g/dl (12.0-16.0); Imm Gran Abs Auto 0.02 X10*3/uL (0.00-0.03); Imm Gran Pct Auto 0.3 % (0.0-0.4); Lymphocytes Absolute Auto 0.7 X10*3/uL (1.2-4.9); Lymphocytes Percent Auto 10.6 % (20-40); Mean Corpuscular HGB Conc 30.1 g/dl (31.0-35.0); Mean Corpuscular Volume 73.1 fL (80.0-98.0); Mean Platelet Volume 9.4 fL (9.4-12.3); Monocytes Absolute Auto 0.5 X10*3/uL (0.1-1.2); Monocytes Percent Auto 7.8 % (2-11); Neutrophils Absolute Auto 5.2 x10*3/uL (2.0-8.3); Neutrophils Percent Auto 81.1 % (45-73); Platelet Count 153 X10*3/uL (160-400); Red Blood Count 3.72 X10*6/uL (4.20-5.50); White Blood Count 6.4 X10*3/uL (4.8-10.8)
[2025-01-21 15:10] LABS: Alanine Aminotransferase 14 U/L (0-31); Albumin Level 4.1 g/dL (3.5-5.0); Alkaline Phosphatase 42 U/L (39-117); Anion Gap 9 (12-20); Aspartate Amino Transferase 14 U/L (5-31); Bilirubin Total 0.3 mg/dL (0.0-1.0); Blood Urea Nitrogen 7 mg/dL (9-16); Calcium 8.9 mg/dL (8.4-10.2); Carbon Dioxide 21 mmol/L (22-29); Chloride 116 mmol/L (96-108); Creatinine Clr Calc Pharmacy 101.8; Estimated Glomerular Filt Rate > 60; Glucose Random 92 mg/dL (60-115); Magnesium 1.9 mg/dL (1.6-2.6); Potassium 3.5 mmol/L (3.3-5.1); Sodium 142 mmol/L (135-145); Total Protein 6.8 g/dL (6.5-8.0)
[2025-01-21 15:14] LABS: HCG Quantitative < 2 mIU/mL
--- NOTE | 2025-01-21 15:25 | PC.NURSE ---
PER BARIATRIC PROVIDER, PT HAS BEEN APPROVED BY PHARMACY TO RECEIVE APONVI ANTIEMETIC IN THE ED , TYPICALLY RESERVED FOR POST OP.
[2025-01-21] MEDS: 0.9 % Sodium Chloride 1,000 ML 999 ML IV (15:38)
[2025-01-21] MEDS: Lactated Ringers 1,000 ML 999 ML IV ×3 (16:00→20:20)
--- NOTE | 2025-01-21 16:25 | PC.NURSE ---
Unable to give nausea med in ED due to hard stop in computer. Nursing sup, pharmacy and provider all aware. Awaiting a plan, not given at this time.
[2025-01-21] MEDS: Aprepitant 32 MG/4.4 ML VIAL IVPUSH (16:33)
--- NOTE | 2025-01-21 16:35 | PC.NURSE ---
Order to give med, TWO RNS VERIFYING DUE TO UNABLE TO SCAN. VERIFIED NAME, , ALLERGIES AND HOW TO GIVE MED. SECOND RN NELLIE AT BEDSIDE VERIFYING. MED ADMINISTERED AT 1633
--- NOTE | 2025-01-21 16:52 | PC.NURSE ---
PHARMACY ABLE TO PRINT NEW LABEL. MED SCANNED.
[2025-01-21] MEDS: Acetaminophen 1,000 MG/100 ML PIGGYBACK 400 MG IV (17:52)
--- NOTE | 2025-01-21 19:30 | PC.NURSE ---
This sports writer assumed care of this Pt at 1900. Pt A&Ox3, reports nausea/ dry heaving, reports 8/10 ABD pain from surgical site. Pt has ABD binder. Pt ambulates with 1 assist to BR with slow steady gait.
[2025-01-21 20:17] VITALS: BP 95/62; PULSE 74; RESP 16; TEMP 37.2; O2SAT 100
--- NOTE | 2025-01-21 20:30 | PM.HPGS ---
History of Present Illness History of Present Illness Date of Service: 01/22/25 Chief complaint: post op nausea Narrative: Ana Seals is a 34 year old female, underwent uneventful panniculectomy 01/20/25. Due to significant iron deficiency anemia she did recieve IV iron intraoperatively. Tolerated procedure well and recovered uneventfully. Discharged home and developed nausea and vomiting. Seen by VNA this morning to change dressing and was reported to have intact incision without any significant abnormality of the incision or drain. Approximately 60 ML serosang fluid emptied from the collection bulb. Pt c/o continued nausea and dry heaving to VNA, could not tolerat po zofran, felt weak and lightheaded. Instructed to go to the ER for IVF and anti-emetics. In the ER appeared clinically dry and was given IVF and anti-emetics and continued to have persistent nausea and so the decision was to admit her for continued care. Overnight, she continue to have some intermittent nausea. This morning complained of migrainous type headache. [facility] Past Medical History Medical History Arthritis Back pain Abnormal Pap smear of cervix Constipation Kidney stones Migraines Cough Scoliosis Hypertension Rheumatoid arthritis Insomnia Anxiety Depression DJD (degenerative joint disease) GERD (gastroesophageal reflux disease) Asthma BMI 38.0-38.9,adult Family History Family History Mother No problems noted. 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) History of loop electrical excision procedure (LEEP) BMI 35.0-35.9,adult Hx of tonsillectomy History of ear surgery Social History Social History Household Members: Children Housing: House Are you a primary health care legal assistant to a significant other at home: Yes (children, will have family help post-op) Do you presently have visiting nurse or other home services: No Alcohol intake: current Alcohol intake frequency: holidays/special occasions only Patient Tobacco Use Status: Former Tobacco user Tobacco use type: Cigarette Smoked in Last 30 Days: No Second Hand Smoke Exposure: No Use of substances other than those prescribed or required for medical reasons: No Advance Directives: Yes Advance Directives Information Provided: Yes Advance Directives on File: No Patient : No Meds Allergies Allergy/AdvReac Type Severity Reaction Status Date / Time erythromycin base Allergy Severe Unresponsive, Verified 01/21/25 14:35 [From Pediazole] cold, clammy (as an infant) sulfisoxazole Allergy Severe Unresponsive, Verified 01/21/25 14:35 [From Pediazole] cold, clammy (as an ) strawberry Allergy Intermediate Hives Verified 01/21/25 14:35 Cephalosporins Allergy Abdominal Verified 01/21/25 14:35 Pain Macrolide Antibiotics Allergy Unknown Verified 01/21/25 14:35 Penicillins [PCN] Allergy Unknown Verified 01/21/25 14:35 Augmentin Allergy Intermediate hives Uncoded 01/06/25 11:09 Active Medications: Current Medications Lactated Ringer's (Lr) 1,000 mls @ 999 mls/hr IV .Q1H1M KEYUR Stop: 01/21/25 21:00 Last Admin: 01/21/25 20:20 Dose: 999 mls/hr Dextrose/Sodium Chloride (D5ns) 1,000 mls @ 150 mls/hr IVCONT .Q6H40M KEYUR Acetaminophen (Ofirmev) 1,000 mg in 100 mls @ 16.7 mls/hr IV .Q6H KEYUR Folic Acid 1 mg/ Sodium (Chloride) 50.2 mls @ 100.4 mls/hr IV ONCE ONE Stop: 01/21/25 21:29 Thiamine HCl 100 mg/ Sodium (Chloride) 101 mls @ 202 mls/hr IV ONCE ONE Stop: 01/21/25 20:46 Lorazepam (Lorazepam 2 Mg/Ml Vial) 0.5 mg IVPUSH DAILY PRN PRN Reason: Anxiety Melatonin (Melatonin 3 Mg Tablet) 9 mg PO ONCE PRN PRN Reason: Insomnia Metoclopramide HCl (Metoclopramide Hcl 10 Mg/2 Ml Vial) 10 mg IVPUSH Q6H PRN PRN Reason: Nausea no effect from zofran Ondansetron HCl (Ondansetron Hcl 4 Mg/2 Ml Vial) 4 mg IVPUSH Q8H PRN PRN Reason: Nausea Pantoprazole Sodium (Pantoprazole Sodium 40 Mg/10 Ml Vial) 40 mg IVPUSH BID@0630,1630 KEYUR Sodium Chloride (0.9 % Sodium Chloride Flush 3 Ml Syringe) 3 ml IVFLUSH QSHIFT KEYUR Topiramate (Topiramate 100 Mg Tablet) 100 mg PO BEDTIME ONE Stop: 01/21/25 21:01 Home Medications ?Medication ?Instructions ?Recorded ?Confirmed ?Last Taken ?Type bupropion HCl 150 mg 24 hr tablet, 150 mg PO DAILY 07/31/23 01/21/25 01/19/25 History extended release nicotine 14 mg/24 hr daily 1 patch topical DAILY 07/31/23 01/21/25 01/19/25 History transdermal patch melatonin 10 mg tablet 10 mg PO BEDTIME PRN Insomnia 11/15/23 01/21/25 11/20/23 History propranolol 10 mg tablet 10 mg PO BID 01/21/25 01/21/25 01/19/25 History topiramate 50 mg tablet 50 mg PO BID 01/21/25 01/21/25 01/19/25 History Physical Exam Vital Signs: Vital Signs: Last Vital Signs Temp 99.0 F 01/21/25 20:17 Pulse 74 01/21/25 20:17 Resp 16 01/21/25 20:17 BP 95/62 01/21/25 20:17 Pulse Ox 100 01/21/25 20:17 O2 Del Method Room Air 01/21/25 20:17 BMI result Body Mass Index 22.6 Const: General: ill appearing Nutritional Appearance: well nourished Orientation/consciousness: patient oriented x3 HEENT: Head: Yes normal to inspection Resp: Effort & Inspection: normal respiratory effort Auscultation: clear to auscultation bilaterally Cardio: Rate: regular rate Rhythm: regular rhythm GI: Inspection: Yes incision (Transverse and umbilical incisions intact, no evidence infection) Auscultation: normal bowel sounds Neuro: General: patient oriented x3 Extrem: General: Yes no pedal edema Results Results Labs: Short CBC 01/21/25 Range/Units 14:41 WBC 6.4 (4.8-10.8) X10*3/uL Hgb 8.2 L (12.0-16.0) g/dl Hct 27.2 L (37.0-47.0) % Plt Count 153 L D (160-400) X10*3/uL BMP 01/21/25 14:41 Sodium 142 Potassium 3.5 Chloride 116 H Carbon Dioxide 21 L BUN 7 L Creatinine 0.70 Calcium 8.9 Liver Function 01/21/25 Range/Units 14:41 Total Bilirubin 0.3 (0.0-1.0) mg/dL AST 14 (5-31) U/L ALT 14 (0-31) U/L Alkaline Phosphatase 42 (39-117) U/L Albumin 4.1 (3.5-5.0) g/dL Assessment and Plan (1) Post-operative nausea and vomiting: Status: Acute Patient received aponvie yesterday. Continues with postoperative nausea, continues p.r.n. ondansetron. Remains NPO, given IV fluids. We will continue to monitor closely, as she improves, consideration for trial clear liquids (2) Anemia: Qualifiers: Anemia type: iron deficiency Status: Acute Combination of both iron-deficiency and menorrhagia. Patient received IV iron intraoperatively. H&H drifted down slowly however I suspect there may be some dilutional effect. This may additionally be contributing to her nausea and headache. We will continue to follow and if no significant improvement, consideration for transfusion 1 unit packed red blood cells this afternoon. (3) Headache: Status: Acute Patient continues to receive IV acetaminophen. She states that she takes Advil or Aleve at home. Given recent surgery, this is not advisable due to increased risk of bleeding. We will give 1 dose Imitrex subcutaneous. (4) S/P panniculectomy: Status: Acute Patient's incisions are all healing nicely. Continue with dressing changes and VNA once she goes home. Plan Patient seen and examined with Dr. Moore. Quality Stroke Does the patient have a stroke diagnosis?: No VTE Prior VTE?: No VTE Risk Level:: Surgical - low VTE Device Contraindication: N/A - Device Ordered VTE Drug Contraindication: Treatment Not Indicated Procedures Date of Service Date of Service: 01/22/25
[2025-01-21] MEDS: Pantoprazole Sodium 40 MG/10 ML VIAL IVPUSH (21:37)
[2025-01-21] MEDS: Folic Acid 1 MG in 0.9 % Sodium Chloride 50 ML 100.4 MG IV (21:39)
[2025-01-21] MEDS: Nicotine 14 MG PATCH.TD24 TRANSDERMA (21:41)
[2025-01-21] MEDS: Cyanocobalamin (Vitamin B-12) 1,000 MCG/ML VIAL 1000 MCG IM (21:42)
--- NOTE | 2025-01-21 21:45 | PHA.MEDREC ---
Addendum entered by Gregory Horvath 01/21/25 21:50: reviewed Original Note: Pharmacy Consult ? Medication Reconciliation Pharmacy has completed the medication reconciliation. Spoke to patient to confirm med list. Patient states she is no longer taking Ciprofloxacin 500 mg ( has not started yet), Clotrimazole 1 % cream, and Lorazepam 1 mg. Patient states she last took her medications 2 days ago.
[2025-01-21] MEDS: Thiamine HCL 100 MG in 0.9 % Sodium Chloride 100 ML 202 MG IV (21:51)
[2025-01-21] MEDS: Dextrose 5 % and 0.9 % NaCl 1,000 ML 150 ML IVCONT (22:27)
[2025-01-22] MEDS: Acetaminophen 1,000 MG/100 ML PIGGYBACK 16.7 MG IV ×4 (00:46→23:49)
[2025-01-22 00:53] VITALS: BP 95/58; PULSE 68; RESP 18; O2SAT 98
[2025-01-22] MEDS: ondansetron HCL 4 MG/2 ML VIAL IVPUSH ×3 (04:37→22:58)
[2025-01-22] MEDS: Dextrose 5 % and 0.9 % NaCl 1,000 ML 150 ML IVCONT ×4 (04:48→22:26)
[2025-01-22 05:01] LABS: MANUAL DIFF FLAG NO
[2025-01-22 05:14] LABS: Basophils Percent Auto 0.4 % (0-2); Eosinophils Percent Auto 0.2 % (0-4); Hematocrit 23.8 % (37.0-47.0); Hemoglobin 7.4 g/dl (12.0-16.0); Imm Gran Abs Auto 0.01 X10*3/uL (0.00-0.03); Imm Gran Pct Auto 0.2 % (0.0-0.4); Lymphocytes Absolute Auto 1.3 X10*3/uL (1.2-4.9); Mean Corpuscular HGB Conc 31.1 g/dl (31.0-35.0); Mean Corpuscular Hemoglobin 22.8 pg (27.0-33.0); Mean Corpuscular Volume 73.2 fL (80.0-98.0); Mean Platelet Volume 10.1 fL (9.4-12.3); Monocytes Absolute Auto 0.5 X10*3/uL (0.1-1.2); Monocytes Percent Auto 9.7 % (2-11); Neutrophils Absolute Auto 3.6 x10*3/uL (2.0-8.3); Neutrophils Percent Auto 65.5 % (45-73); Platelet Count 139 X10*3/uL (160-400); Red Blood Count 3.25 X10*6/uL (4.20-5.50); White Blood Count 5.5 X10*3/uL (4.8-10.8)
[2025-01-22 05:19] LABS: Anion Gap 7 (12-20); Blood Urea Nitrogen 8 mg/dL (9-16); Calcium 8.1 mg/dL (8.4-10.2); Carbon Dioxide 21 mmol/L (22-29); Chloride 119 mmol/L (96-108); Creatinine Clr Calc Pharmacy 127.3; Estimated Glomerular Filt Rate > 60; Glucose Random 108 mg/dL (60-115); Potassium 3.3 mmol/L (3.3-5.1); Sodium 144 mmol/L (135-145)
[2025-01-22] MEDS: Pantoprazole Sodium 40 MG/10 ML VIAL IVPUSH ×2 (05:32→15:41)
--- NOTE | 2025-01-22 05:45 | PC.NURSE ---
Pt ambulated to BR with 1 assist, slow steady gait. Assisted with ARUNA drain log. 80 mL of red fluid drained.
[2025-01-22 08:02] VITALS: BP 102/62; PULSE 73; RESP 12; TEMP 36.9; O2SAT 100
[2025-01-22] MEDS: SUMAtriptan succinate 6 MG/0.5 ML VIAL SUBCUT ×2 (09:35→15:35)
--- NOTE | 2025-01-22 12:44 | MHC.CM.PN ---
PT FROM HOME WITH FAMILY, ADDRESS VERIFIED. PT ACTIVE WITH [facility], RETURN REFERRAL PLACED PT DOES NOT USE DME PT SIGNED HCP NAMING MATHEW SUTTON [phone] [facility] [phone] PT'S PCP RICKY NEWELL IS LISTED AND CORRECT DCP- [facility], VIA [facility]IVATE TRANSPORT
[2025-01-22 15:13] VITALS: BP 106/54; PULSE 69; RESP 16; TEMP 36.7; O2SAT 100
[2025-01-22 19:19] VITALS: BP 94/70; PULSE 65; RESP 18; TEMP 37.2; O2SAT 98
[2025-01-22] MEDS: LORazepam 2 MG/ML VIAL 0.5 MG IVPUSH (23:00)
[2025-01-23] VITALS (13 sets, daily range): BP systolic 88–111; BP diastolic 50–68; PULSE 54–69; RESP 16–18; TEMP 36.3–37.2; O2SAT 96–99
--- NOTE | 2025-01-23 02:17 | PC.NURSE ---
Pt seen on bed at shift change , c/o 10/10 MYRICK, with soft BP 94/70 by manual, 84/54 by machine, denies any nausea,Colin Mullins was notified, pt was reeducated of the treatment plan, no changes of meds at this time, Lorazepam was offered, pt was asleep when revisited, few hors later ,pt c/o nausea and dry heaving, prn Zofran was given, offered Lorazepam and complied. Routine vitals around 12mn, noted pt with BP 88/56 manually, pt was drowsy, Colin Mullins was updated, no further order made.
[2025-01-23] MEDS: Dextrose 5 % and 0.9 % NaCl 1,000 ML 150 ML IVCONT ×2 (04:54→11:07)
[2025-01-23] MEDS: Pantoprazole Sodium 40 MG/10 ML VIAL IVPUSH ×2 (05:56→17:58)
[2025-01-23] MEDS: Acetaminophen 1,000 MG/100 ML PIGGYBACK 16.7 MG IV (05:56)
--- NOTE | 2025-01-23 10:30 | P.PNGS_ITS ---
Subjective Subjective Date of Service: 01/23/25 Patient reports: feels better Interval history: 34-year-old female, continues with mild headache and intermittent nausea. She was up ambulating in the hallway although felt somewhat lightheaded. No syncope. She reports moving her bowels this morning without difficulty. She is tolerating clear liquids but did have some difficulty with jello last night causing nausea. Headache last night treated with lorazepam with affect. Physical Exam 2 Vital Signs: Vital Signs: Last Vital Signs Temp 98.2 F 01/23/25 07:39 Pulse 63 01/23/25 07:39 Resp 16 01/23/25 07:39 BP 94/54 L 01/23/25 07:39 Pulse Ox 99 01/23/25 07:39 O2 Del Method Room Air 01/23/25 07:39 BMI result Body Mass Index 22.6 Const: General: no acute distress and well developed Resp: Effort & Inspection: normal respiratory effort Auscultation: clear to auscultation bilaterally Cardio: Rate: regular rate Rhythm: regular rhythm Skin: Other: Transverse and umbilical incisions are clean, dry, intact. No evidence of infection or dehiscence. Objective Data Active Medications Dextrose/Sodium Chloride (D5ns) 1,000 mls @ 75 mls/hr IVCONT .[id number] [facility] Last Admin: 01/23/25 04:54 Dose: 150 mls/hr Documented By: SAHARA Acetaminophen (Ofirmev) 1,000 mg in 100 mls @ 16.7 mls/hr IV .Q6H [facility] Last Admin: 01/23/25 05:56 Dose: 16.7 mls/hr Documented By: SAHARA Lorazepam (Lorazepam 2 Mg/Ml Vial) 0.5 mg IVPUSH DAILY PRN PRN Reason: Anxiety Last Admin: 01/22/25 23:00 Dose: 0.5 mg Documented By: SAHARA Melatonin (Melatonin 3 Mg Tablet) 9 mg PO ONCE PRN PRN Reason: Insomnia Metoclopramide HCl (Metoclopramide Hcl 10 Mg/2 Ml Vial) 10 mg IVPUSH Q6H PRN PRN Reason: Nausea no effect from zofran Ondansetron HCl (Ondansetron Hcl 4 Mg/2 Ml Vial) 4 mg IVPUSH Q8H PRN PRN Reason: Nausea Last Admin: 01/22/25 22:58 Dose: 4 mg Documented By: MARTINAILBrennon Pantoprazole Sodium (Pantoprazole Sodium 40 Mg/10 Ml Vial) 40 mg IVPUSH BID@0630,1630 [facility] Last Admin: 01/23/25 05:56 Dose: 40 mg Documented By: MARTINAILBrennon Sodium Chloride (0.9 % Sodium Chloride Flush 3 Ml Syringe) 3 ml IVFLUSH QSHIFT [facility] Last Admin: 01/23/25 08:24 Dose: Not Given Documented By: LEATHA Non-Admin Reason: IV Running Labs 01/22/25 04:16 01/22/25 04:16 Labs: Laboratory Results - last 24 hr 01/23/25 10:23 Crossmatch See Detail Procedures Date of Service Date of Service: 01/23/25 Progress Note: A&P Assessment and plan (1) S/P panniculectomy: Status: Acute Assessment and Plan: Postop day 2, status post panniculectomy. Dressing change today. Incisions clean, dry, intact. We will continue with VNA services once discharged home. (2) Headache: Status: Acute Assessment and Plan: History of migrainous type headache in early adulthood. Previously taking Imitrex. She received Imitrex yesterday with good effect. One more dose this morning. We will send her home with oral medications and she will follow up with her primary care physician. (3) Anemia: Status: Acute Assessment and Plan: No evidence of acute blood loss. She does have a history of menorrhagia. She is followed by gynecology regarding this and has trialed oral contraceptives in the past with success. These were discontinued at the time of her previous surgery. She also has evidence of iron-deficiency for which she received 200 mg Venofer intraoperatively. Given her persistent anemia, feelings of lightheadedness with ambulation and recent surgery, the decision is made to transfuse 2 units packed red blood cells. Patient has been consented as such. (4) Post-operative nausea and vomiting: Status: Acute Assessment and Plan: Nausea improving. She did receive aponvie in the emergency room and since been controlled with p.r.n. Zofran. We will continue and additionally continue with oral Zofran once discharged home. Plan Case discussed with Dr. Moore. Time Spent With Patient Time: Total time managing care of this patient today ____ minutes. Quality Stroke Does the patient have a stroke diagnosis?: No VTE Prior VTE?: No VTE Risk Level:: Surgical - low VTE Device Contraindication: N/A - Device Ordered VTE Drug Contraindication: Treatment Not Indicated
[2025-01-23] MEDS: SUMAtriptan succinate 6 MG/0.5 ML VIAL SUBCUT (11:03)
[2025-01-23] MEDS: Nicotine 7 MG PATCH.TD24 TRANSDERMA (11:05)
[2025-01-23] MEDS: diphenhydrAMINE HCL 25 MG CAPSULE PO (11:54)
--- NOTE | 2025-01-23 15:09 | PC.NURSE ---
1st unit of blood is done, pt. tolerated it well, no adverse reactions.
--- NOTE | 2025-01-23 16:52 | PM.DS ---
DS: Providers Provider Date of Service: 01/23/25 Date of admission: 01/21/25 20:18 Date of discharge: 01/23/25 Primary care physician: Armin Kline MD DS: Diagnosis Discharge Diagnosis (1) S/P panniculectomy: Status: Acute (2) Headache: Status: Acute (3) Anemia: Status: Acute (4) Post-operative nausea and vomiting: Status: Acute DS: Summary Hospital Course Hospital Course: 34 yo female underwent uneventful panniculectomy on 01/21/25. Pre-operatively she was found to have iron deficiency anemia and she was givan Venofer intra-operatively. She was discharged home but developed nausea with vomiting and was asked to come to the ER POD 1. She was found to have clinical dehydration and was admitted to the hospital. She was given IVF, anti-emetics and developed a MYRICK for which she was treated with Imitrex with good effect. POD 2 she continued with MYRICK and feeling lightheaded and the decision was to transfuse 2 units PRBC. She felt much better and tolerated her protein shakes. MYRICK improved and she ambulated on the unit without difficulty. She was feeling well and was able to be discharged home. Anemia: She reports menorrhagia for which she ahs been followed by filling separator. She was on OCP but these were stopped. She also reports an intolerance to IUD due to cysts. She states she will f/u with filling separator and likely will need a solution for her menorrhagia. As above tolerated transfusion 2 units PRBC without incident. MYRICK: She reports a history of headaches in the past for which she was prescribed imitrex with good effect. She states that previously she would take NSAIDS for MYRICK but given recent surgery that was not an option. Will send home with Rx for Imitrex prn. Tobacco abuse: Gives a history of smoking 1/2 PPD but quit a year ago. She has been on Nicoderm 14 mg patches since then. Dose reduced to 7 mg and will give 4 week Rx for 7 mg patches and then dc. Panniculectomy: Continue VNA services at home and ABX to start tomorrow. f/u in office as scheduled. Time Attestation Total time managing care of this patient today: 25 mintues. Discharge Coordination Time (in mins): 25 Quality: Safe Use of Opioids Does Pt have an Active Cancer Diagnosis on the Problem List?: No Quality: Stroke Does the patient have a stroke diagnosis?: No Physical Exam Vital Signs: Vital Signs: Last Vital Signs Temp 98.7 F 01/23/25 16:19 Pulse 62 01/23/25 16:19 Resp 16 01/23/25 16:19 BP 102/56 L 01/23/25 16:19 Pulse Ox 97 01/23/25 16:00 O2 Del Method Room Air 01/23/25 16:00 BMI result Body Mass Index 22.6 DS: Data Data Completed and Pending Completed studies during hospitalization [Text1]: Procedures Excision of Stomach, Percutaneous Endoscopic Approach, Vertical (11/21/23) Release Peritoneum, Percutaneous Endoscopic Approach (11/21/23) Labs on day of discharge: Laboratory Results - last 24 hr 01/23/25 10:23 Blood Type O Positive Antibody Screen NEGATIVE Crossmatch See Detail Discharge Plan Discharge Anticipated Discharge Date/Time: 01/23/25 19:03 Patient Disposition: Home Health Service Discharge Diagnosis: post operative nausea with dehydration Referrals: Armin Kline MD [Primary Care Provider] - 1 Week Discharge Medications: New nicotine 7 mg/24 hr Patch 24 Hour 7 mg transdermal DAILY 30 Days Qty: 30 0RF sumatriptan succinate [Imitrex] 50 mg tablet See Rx Instructions .ROUTE .COMPLEX Qty: 30 0RF Rx Instructions: take 1 tab at onset of headache; if no relief may repeat 1 tab after at least 2 hrs; max = 4 tabs/24 hr Continued docusate sodium [Colace] 100 mg capsule 100 mg PO DAILY Qty: 90 0RF melatonin 10 mg Tablet 10 mg PO BEDTIME PRN (Reason: Insomnia) propranolol 10 mg tablet 10 mg PO BID topiramate 50 mg tablet 50 mg PO BID bupropion HCl 150 mg tablet extended release 24 hr 150 mg PO DAILY ciprofloxacin HCl [Cipro] 500 mg tablet 500 mg PO Q12H Qty: 60 2RF ondansetron 4 mg tablet,disintegrating 4 mg PO Q12H Qty: 20 0RF Discontinued nicotine 14 mg/24 hr patch 24 hour 1 patch topical DAILY Discharge Orders: Discharge Order (Routine); Ordered 01/23/25 Ordered By: Colin Mullins Activity on Discharge: As discussed with Dr Moore Stand Alone Forms: Patient Portal Discharge page Print Language: Croatian Care Plan Goals: heal from panniculectomy Health Concerns: headache, anemia, s/p panniculectomy Plan of Treatment: as previously discussed about care after panniculectomy Assessment: stable for d/c home s/p panniculectomy, IVF, transfusion 2 units PRBC
[2025-01-23] MEDS: 0.9 % Sodium Chloride Flush 3 ML SYRINGE IVFLUSH (17:57)
[2025-01-23] MEDS: Acetaminophen 325 MG TABLET 650 MG PO (17:58)
== END 2025-01-23 18:31 | disposition home health service (06) | DRG 813 ==
LOC: HO.ED 20:35 → HO.EDOVER 22:44 → HO.S3 01-22 13:20
PROVIDERS: Physician Assistant Medical; Physician Assistant Surgical; Admitting Provider Surgery; Emergency Provider Emergency Medicine; PCP Internal Medicine; Visit Provider Surgery
DX: T88.8XXA Other specified complications of surgical and medical care, not elsewhere classified, initial encounter (principal); D50.9 Iron deficiency anemia, unspecified; E86.0 Dehydration; R51.9 Headache, unspecified; R11.2 Nausea with vomiting, unspecified; Y83.8 Other surgical procedures as the cause of abnormal reaction of the patient, or of later complication, without mention of misadventure at the time of the procedure; Z79.899 Other long term (current) drug therapy
CPT/HCPCS: 36415; 80048; 80053; 83735; 84702; 85025; 86850; 86900; 86901; 86923; 99218; 99285; C9145; J0131; J2060; J2405; J2470; J3030; J3411; J3420; J7120; P9016

== ENCOUNTER → 2025-01-21 20:18 | Outpatient (BNV) | payer OTHER, SELFPAY | PROVIDERS: Admitting Provider Surgery; Emergency Provider Emergency Medicine; PCP Internal Medicine; Visit Provider Physician Assistant Surgical | DX: R11.2 Nausea with vomiting, unspecified (principal); D64.9 Anemia, unspecified; R51.9 Headache, unspecified; Z98.890 Other specified postprocedural states | CPT/HCPCS: 99222; 99238; 99499 ==

== ENCOUNTER 2025-01-28 10:07 | Outpatient (AMB) | payer OTHER, SELFPAY ==
--- NOTE | 2025-01-28 10:35 | A.OFFVIS_ITS ---
VS Expanded 01/28/25 10:42 BP 97/52 L Blood Pressure Location Lt brachial Blood Pressure Position Sitting Pulse 60 Pulse Oximetry 100 Intake Visit Reasons: (OV) s/p Panniculectomy 01/20/25 Allergies erythromycin base [From Pediazole] Allergy (Severe, Verified 01/28/25 10:42) Unresponsive, cold, clammy (as an infant) sulfisoxazole [From Pediazole] Allergy (Severe, Verified 01/28/25 10:42) Unresponsive, cold, clammy (as an infant) strawberry Allergy (Intermediate, Verified 01/28/25 10:42) Hives Cephalosporins Allergy (Verified 01/28/25 10:42) Abdominal Pain Macrolide Antibiotics Allergy (Verified 01/28/25 10:42) Unknown Penicillins [PCN] Allergy (Verified 01/28/25 10:42) Unknown Augmentin Allergy (Intermediate, Uncoded 01/28/25 10:42) hives HPI Comments Details: Patient is a 34-year-old female who returns to the office today in follow-up. She is status post panniculectomy performed on 01/20/2025. She did require hospitalization 01/21/25 through 01/23/25 due to persistent nausea with vomiting. She was given IV antiemetics. Also found to have significant anemia which was known preoperatively. She was ultimately transfused 2 units packed red blood cells with significant improvement. Since being discharged home, Patient was seen by her primary care physician yesterday. Reportedly having blood pressure 80s over 60s. Instructed to go to the emergency room. She did not go. She additionally states that she is having her menstrual. This week of which it is heavy. 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 She reports proximally 100 serosanguineous from the collection bulb. She is taking her meal plan including 2-3 shakes per day, 1-2 bars per day and a meal. She continues antibiotics. 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 Father Diabetes Social History Household Members: Family Housing: House Are you a primary manager critical care to a significant other at home: Yes (children, will have family help post-op) Do you presently have visiting nurse or other home services: Yes (Paula BIGGS) 75 years or older and lives alone: No Alcohol intake: current Alcohol intake frequency: holidays/special occasions only Patient Tobacco Use Status: Former Tobacco user Tobacco use type: Cigarette Second Hand Smoke Exposure: No Advance Directives Date on File: 01/22/25 service: No Physical Exam Skin Other: Transverse abdominal incision and umbilical incisions healing nicely. Umbilicus is viable. Assessment & Plan Assessment & Plan (1) S/P panniculectomy: Code(s): Z98.890 - Other specified postprocedural states Category: Surgical Plan: Patient is doing well. Continue monitoring output. Continue meal plan. Continue antibiotics. Return to clinic 1 week.
[2025-01-28 10:42] VITALS: BP 97/52; PULSE 60; O2SAT 100
--- OUTSIDE RECORDS SUMMARY | 2025-01-28 12:54 | XMS_ITS | Encounter Summary ---
Author Organization [facility] Address [address] [place] [address] Care Team Providers Care Inside Sales Account Representative Name Role Phone Armin Kline MD Primary Care Provider Reason for Visit * Reason Onset Date Comments Hospital Follow-up 01/25/2025 Encounter Details Date Type Department Care Team (Late st Contact Info) Description 01/25/2025 Telephone Adult Medicine [facility] [address] [place] [phone] Armin Kline MD [address] [place] [address] Hospital Follow-up Social History Tobacco Use Types Packs/Day Years Used Date Smoking Tobacco: Former Cigarettes Smokeless Tobacco: Never Alcohol Use Standard Drinks/Week Comments Yes 0 (1 standard drink = 0.6 oz pur e alcohol) Comments No Sex and Gender Information Value Date Recorded Sex Assigned at Female 01/27/2025 5:58 PM EDT Legal Sex Female 5:00 PM EST Gender Identity Female 01/27/2025 5:58 PM EDT Sexual Orientation Choose not to disclose 2024 5:58 PM EDT documented as of this encounter Progress Notes * Allegra Pat RN - 01/25/2025 3:56 PM EDT Spoke with the pt and scheduled hosp f/u for 01/27 at 1:45 * Malissa Townsend - 01/25/2025 1:39 PM EDT Hospital/ER follow up appointment needed Hospital patient was treated at: [facility] Was this only an ER visit or was the patient admitted to the hospital? Admitted to the hospital/kept overnight Date of visit if ER visit only: If patient was admitted what was the date of discharge? 01/23/25 Reason/diagnosis for visit or stay: pt was admitted for blood transfusion after a procedure When was the patient told to follow up? saima Was visit or stay related to an injury? If yes, what was the date of injury (DOI)? No If yes, was the injury due to: Not 3rd green party related documented in this encounter Plan of Treatment Upcoming Encounters Date Type Department Care Team (Late st Contact Info) Description 02/05/2025 10:30 AM EDT Office Visit Adult Medicine [address] [phone] Armin Kline MD [address] [place] [address] 02/18/2025 9:30 AM EDT Office Visit Obstetrics and Gynecology - [address] [phone] Daniela Harper CNM [address] [place] [phone] documented as of this encounter Visit Diagnoses Not on filedocumented in this encounter Care Teams Inside Sales Account Representative Relationship Specialty Start Date End Date Armin Kline MD [address] [place] [id number] PCP - General Internal Medicine 10/05/24 documented as of this encounter
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
--- OUTSIDE RECORDS SUMMARY | 2025-01-28 12:54 | XMS_ITS | Encounter Summary ---
Author Organization [facility] Address [address] [place] [address] Care Team Providers Care Employee Relation Manager Name Role Phone Armin Kline MD Primary Care Provider Encounter Details Date Type Department Care Team (Late st Contact Info) Description 01/28/2025 Telephone Adult Medicine [facility] [address] [place] [address] Armin Kline MD [address] [place] [address] Social History Tobacco Use Types Packs/Day Years [...] as of this encounter Progress Notes * Lizeth Magaña RN - 01/28/2025 9:17 AM EDT Pt. Was seen in office with low BP 80/50 slight dizziness and sent to ER for evaluation. Pt. Marianae was there for 2 hours and had labs . When they told her is was going to be 7hr wait she left . She has taken her BP 78/68 then rechecked 1 hour later 96/68 Pt. Denies feeling lightheaded or weak I'm fine I advised if having low BP she should follow her PCP advise and go to ER and stay. Pt. States she is going to her surgeon office for a post op apt. With her and feels fine no clamminess, no weakness, no lightheadedness. I made a follow up apt. And asked the pt. To follow up with us after this apt. And any need to change this office visit . I reiterated the importance of returning to the ER for low bp and any associated symptoms cp,weakness, sob lightheadedness pt. Verbalized understanding * Armin Kline MD - 01/28/2025 8:44 AM EDT Please call patient to schedule ER follow-up. documented in this encounter Plan of Treatment Upcoming Encounters Date Type Department Care Team (Late st Contact Info) Description 02/05/2025 10:30 AM EDT Office Visit Adult Medicine [address] [phone] Armin Kline MD [address] [place] [address] 02/18/2025 9:30 AM EDT Office Visit Obstetrics and Gynecology - [address] [phone] Daniela Harper CNM [address] [place] [address] documented as of this encounter Visit Diagnoses Not on filedocumented in this encounter Care Teams Employee Relation Manager Relationship Specialty Start Date End Date Armin Kline MD [address] [place] [address] PCP - General Internal Medicine 10/05/24 documented as of this encounter
--- OUTSIDE RECORDS SUMMARY | 2025-01-28 12:54 | XMS_ITS | Encounter Summary ---
Author Organization [facility] Address [address] [place] [address] Care Team Providers Care Medical Oncologist Name Role Phone Armin Kline MD Primary Care Provider Reason for Visit * Reason Comments Dizziness weak Weakness - Generalized Encounter Details Date Type Department Care Team (Late st Contact Info) Description 01/27/2025 3:09 PM EDT - 01/27/2025 6:[address] [facility] Emergency [address] [place] [address] Discharge Disposition: Home or Self Care Social History Tobacco Use Types Packs/Day Years [...] PM EDT documented as of this encounter Last Filed Vital Signs Vital Sign Reading [...] Mass Index 23.3 01/27/2025 3:23 PM EDT documented in this encounter Medications at Time of Discharge albuterol HFA (PROAIR HFA ; PROVENTIL HFA ; VENTOLIN HFA) 90 mcg/actuation inhaler Inhale 2 Puffs into the lungs every 4 hours as needed for Shortness of Breath for up to 180 days. 07/16/2019 B complex-vitamin C-folic acid (JAVAN-BERTO) 1-60-300 mg-mg-mcg tablet Take 1 tablet by mouth 1 (one) time each day with breakfast. buPROPion XL (WELLBUTRIN XL) 150 mg 24 hr tablet Take 1 tablet (150 mg total) by mouth 1 (one) time each day in the morning. 11/14/2022 cyanocobalamin (VITAMIN B-12) 100 mcg tablet Take by mouth. famotidine (PEPCID) 20 mg tablet Take 1 Tablet by mouth 2 times daily as needed for Heartburn for up to 180 days. 10/24/2022 ferrous sulfate 325 mg (65 mg iron) EC tablet Take 1 tablet (325 mg total) by mouth 1 (one) time each day with breakfast. Do not crush, chew, or split. 180 each 1 01/27/2025 melatonin 5 mg tablet 02/17/2024 topiramate (TOPAMAX) 50 mg tablet 03/12/2023 documented as of this encounter Discharge Disposition Disposition Code Departure Means Destination Comment s Home or Self Care LWT . THIS NURSE ADVISED PT TO STAY TO BE SEEN BUT PT SIS NOT documented in this encounter Progress Notes * Emily López RN - 01/27/2025 5:32 PM EDT Pt to fec nurse and reported she is leaving . Pt encouraged to stay and to the pt reported charge Aware of her needs but pt insisted on leaving. Pt reports she has an appointment to see her dr in [place] and she will return to er with concerns * Debra Saavedra RN - 01/27/2025 3:20 PM EDT Pt to ed reports dizziness, lightheaded and headache started last Saturday. Pt reports has a tummy tuck . Pt reports got iron trasnfusion during her procedure, was discharged home and then seen by visiting nurse and had low blood pressure. Pt went back to ER was given fluids and tylenol without relief. Pt did receive blood transfusion eventually and then was discharged. Pt reports period started as well and drains remain in abdomen as well documented in this encounter Plan of Treatment Upcoming Encounters Date Type Department Care Team (Late st Contact Info) Description 02/05/2025 10:30 AM EDT Office Visit Adult Medicine [facility] [address] [place] [address] Armin Kline MD [address] [place] [address] 02/18/2025 9:30 AM EDT Office Visit Obstetrics and Gynecology - [address] [phone] Daniela Harper [address] [address] documented as of this encounter Procedures Procedure Name Priority Date/Time Associated Diagnosis Comments CBC WITH AUTO DIFFERENTIAL STAT 01/27/2025 3:33 PM EDT CBC AND DIFFERENTIAL STAT 01/27/2025 3:33 PM EDT TYPE AND SCREEN STAT 01/27/2025 3:33 PM EDT BASIC METABOLIC PANEL STAT 01/27/2025 3:33 PM EDT documented in this encounter Results * (ABNORMAL) CBC auto differential (01/27/2025 3:33 PM EDT) [facility] Signature WBC 5.7 4.8 - 10.8 K/mcL LAB HEMETOLOGY METHOD 01/27/2025 4:00 PM [facility] RBC 4.30 3.80 - 4.80 M/mcL LAB [facility]OLOG[facility] Hemoglobin 10.3(L) 11.5 - 16.0 g/dL LAB HEMETOLOGY METHOD 01/27/2025 4:00 PM [facility] Hematocrit 33.9(L) 35.0 - 47.0 % LAB HEMETOLOGY METHOD 01/27/2025 4:00 PM [facility] MCV 79.8 79.0 - 98.0 FL LAB HEMETOLOGY METHOD 01/27/2025 4:00 PM [facility] MCH 24.2(L) 27.0 - 32.0 pcg LAB HEMETOLOGY METHOD 01/27/2025 4:00 PM [facility] MCHC 30.4(L) 32.0 - 37.0 g/dL LAB HEMETOLOGY METHOD 01/27/2025 4:00 PM [facility] RDW 19.5(H) 11.0 - 15.0 % LAB HEMETOLOGY METHOD 01/27/2025 4:00 PM [facility] Platelets 204 130 - 400 K/mcL LAB HEMETOLOGY METHOD 01/27/2025 4:00 PM [facility] MPV 9.9 7.0 - 11.0 FL LAB HEMETOLOGY METHOD 01/27/2025 4:00 PM [facility] NRBC 0.0 <1.0 % LAB HEMETOLOGY METHOD 01/27/2025 4:00 PM [facility] NRBC Absolute 0.00 <0.10 K/mcL LAB HEMETOLOGY METHOD 01/27/2025 4:00 PM [facility] Neutrophils Relative 61.5 % LAB HEMETOLOGY METHOD 01/27/2025 4:00 PM [facility] Lymphocytes Relative 26.5 % LAB HEMETOLOGY METHOD 01/27/2025 4:00 PM [facility] Monocytes Relative 7.4 % LAB HEMETOLOGY METHOD 01/27/2025 4:00 PM [facility] Eosinophils Relative 3.7 % LAB HEMETOLOGY METHOD 01/27/2025 4:00 PM [facility] Basophils Relative 0.7 % LAB HEMETOLOGY METHOD 01/27/2025 4:00 PM [facility] Immature Granulocytes Relative 0.2 % LAB HEMETOLOGY METHOD 01/27/2025 4:00 PM [facility] Neutrophils Absolute 3.47 1.50 - 7.00 K/mcL LAB HEMETOLOGY METHOD 01/27/2025 4:00 PM [facility] Lymphocytes Absolute 1.50 1.00 - 5.00 K/mcL LAB HEMETOLOGY METHOD 01/27/2025 4:00 PM [facility] Monocytes Absolute 0.42 0.20 - 1.00 K/mcL LAB HEMETOLOGY METHOD 01/27/2025 4:00 PM [facility] Eosinophils Absolute 0.21 0.00 - 0.50 K/mcL LAB HEMETOLOGY METHOD 01/27/2025 4:00 PM [facility] Basophils Absolute 0.04 0.00 - 0.20 K/mcL LAB HEMETOLOGY METHOD 01/27/2025 4:00 PM [facility] Immature Granulocytes Absolute 0.01 0.00 - 0.03 K/mcL LAB HEMETOLOGY METHOD 01/27/2025 4:00 PM EDT [facility] Blood Venous blood specimen / Unknown Venipuncture / Unknown 01/27/2025 3:33 PM EDT 01/27/2025 3:44 PM EDT us Haidersaadia Coon MD LAB BLOOD ORDERABLES Final Resu lt [facility] [address] [place] [address], [place] [phone] * Type and screen (01/27/2025 3:33 PM EDT) ABO Group O 01/27/2025 4:58 PM EDT [facility] Rh Type Positive 01/27/2025 4:58 PM EDT [facility] Antibody Screen Negative 01/27/2025 4:58 PM EDT [facility] Blood Venous blood specimen / Unknown Venipuncture / Unknown 01/27/2025 3:33 PM EDT 01/27/2025 3:44 PM EDT us Haider Coon MD LAB BLOOD BANK TEST ORDERABLES Final Result Performing Organization Address [facility]/ZIP Co de Phone Number [facility] [address] [place] [address], [place] [phone] * (ABNORMAL) Basic metabolic panel (01/27/2025 3:33 PM EDT) Sodium 141 133 - 145 mmol/L LAB CHEMISTRY METHOD 01/27/2025 4:31 PM EDT [facility] Potassium 3.6 3.5 - 5.5 mmol/L LAB CHEMISTRY METHOD 01/27/2025 4:31 PM EDT [facility] Chloride 115(H) 96 - 110 mmol/L LAB CHEMISTRY METHOD 01/27/2025 4:31 PM EDT [facility] CO2 22 21 - 32 mmol/L LAB CHEMISTRY METHOD 01/27/2025 4:31 PM EDT [facility] Anion Gap 4 3 - 11 LAB CHEMISTRY METHOD 01/27/2025 4:31 PM EDT [facility] Glucose 89 70 - 100 mg/dL LAB CHEMISTRY METHOD 01/27/2025 4:31 PM EDT [facility] BUN 21 5 - 25 mg/dL LAB CHEMISTRY METHOD 01/27/2025 4:31 PM EDT [facility] Creatinine 0.70 0.50 - 1.10 mg/dL LAB CHEMISTRY METHOD 01/27/2025 4:31 PM EDT [facility] eGFR 117 >=60 mL/min/1. 73m2 LAB CHEMISTRY METHOD 01/27/2025 4:31 PM EDT [facility] Comment:Calculation based on the??Chronic Kidney Disease Epidemiology Collaboration (CKD-EPI) equation refit??without adjustment for race. BUN/Creatinine Ratio 30.0 LAB CHEMISTRY METHOD 01/27/2025 4:31 PM EDT [facility] Calcium 8.4(L) 8.5 - 10.5 mg/dL LAB CHEMISTRY METHOD 01/27/2025 4:31 PM EDT [facility] Blood Venous blood specimen / Unknown Venipuncture / Unknown 01/27/2025 3:33 PM EDT 01/27/2025 3:44 PM EDT us Haider Coon MD LAB BLOOD ORDERABLES Final Resu lt [facility] [address] [place] [address], documented in this encounter Visit Diagnoses Not on filedocumented in this encounter Administered Medications Inactive Administered Medications - up to 3 most recent administrations Medication Order MAR Action Action Date Dose Rate Site acetaminophen (TYLENOL) tablet 650 mg 650 mg, oral, Once, On Sat01/27/25 at 1649, For 1 dose Given 01/27/2025 4:52 PM EDT 650 mg documented in this encounter Active and Recently Administered Medications Times are shown in EDT. Scheduled Medication Order 01/25/2025 01/26/2025 01/27/2025 acetaminophen (TYLENOL) tablet 650 mg (COMPLETED) 650 mg, oral, Once, On Sat01/27/25 at 1649, For 1 dose 1652 (Given - Provid er: Debra Saavedra RN) documented in this encounter Orders Medications Ordered That Chris ht Not Have Been Administered Count Last Ordered Date First Ordered Date acetaminophen (TYLENOL) 325 mg tablet - ADS Override Pull 1 01/27/2025 acetaminophen (TYLENOL) tablet 650 mg 1 documented in this encounter Care Teams Medical Oncologist Relationship Specialty Start Date End Date Armin Kline MD [address] [place] [address] PCP - General Internal Medicine 10/05/24 documented as of this encounter
--- OUTSIDE RECORDS SUMMARY | 2025-01-28 12:54 | XMS_ITS | Encounter Summary ---
Author Organization [facility] Address [address] [place] [address] Care Team Providers Care Transformer Tester Name Role Phone Armin Kline MD Primary Care Provider Reason for Visit * Reason Comments Hospital Follow-up [facility] Encounter Details Date Type Department Care Team (Late st Contact Info) Description 01/27/2025 2:00 PM EDT Office Visit Adult Medicine [facility] [address] [place] [address] Armin Kline MD [address] [place] [address] Hospital discharge follow-up (Primary Dx); Iron deficiency anemia due to chronic blood loss; Hypotension due to hypovolemia; Symptomatic anemia Social History Tobacco Use Types Packs/Day Years [...] Sign Reading Time Taken Comments Blood Pressure 80/50 01/27/2025 1:49 PM EDT Pulse 69 01/27/2025 1:49 PM EDT Temperature 36.6 ??C (97.9 ??F) 01/27/2025 1:49 PM ED T Respiratory Rate 14 01/27/2025 1:49 PM EDT Oxygen Saturation - - Inhaled Oxygen Concentration - - Weight 63.6 kg (140 lb 3.2 oz) 01/27/2025 1:49 P M EDT Height 167.6 cm (5' 6 ) 01/27/2025 1:49 PM EDT Body Mass Index 22.63 01/27/2025 1:49 PM EDT documented in this encounter Ordered Prescriptions Prescription Sig Dispense Quantity Refills Last Filled Start Date End Date ferrous sulfate 325 mg (65 mg iron) EC tablet Take 1 tablet (325 mg total) by mouth 1 (one) time each day with breakfast. Do not crush, chew, or split. 180 each 1 01/27/2025 documented in this encounter Progress Notes * Allegra Pat RN - 01/27/2025 2:00 PM EDT Expect called * Armin Kline MD - 01/27/2025 2:00 PM EDT CHIEF COMPLAINT: Hospital Follow-up ([facility]) IDENTIFIER: Ana Seals is a 34 y.o. old female. HPI: Patient presents today for re-evaluation after hospitalization for anemia, postop nausea and vomiting at [facility] from January 21, 2025 until January 23, 2025. Information was extracted from the discharge notes. The history was reviewed for accuracy and confirmed by myself. I have reconciled the current and discharge meds. 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 She has been following with [facility] weight management. Patient underwent uneventful panniculectomy on January 21, 2025 at [facility]. .. Preoperative, she was found to be iron deficient and received Venofer intraoperatively. She was discharged after the surgery but developed nausea and vomiting was asked to come to the ER. She was found to be dehydrated andwas admitted to the hospital. She was given IV fluids, antiemetics as well as Imitrex for headache.She was found to be anemic with hemoglobin of 6 and was transfused 2 units of PRBC. Hemoglobin was 7.6 on discharge. Blood pressure did improve slightly. She was assessed to have infectious anemia inthe setting of menorrhagia. Previously had IUD which she could not tolerate. She was on OCPs which were discontinued by her PITCH FLAKER. She is currently scheduled to see PITCH FLAKER on February 18. She currently has an abdominal drain, scheduled to have post appointment tomorrow. However she is complaining of dizziness, headache as well as feeling unsteady. Feels tired as well. She is currentlyhaving menstrual periods as well. She states she feels worse as compared to when she was admitted at [facility]. In our records, he she had a CBC done with us in October 2022 and her CBC was normal. ROS: RESPIRATORY: No cough, wheezing or shortness of breath CARDIOVASCULAR: Negative for chest pain, leg swelling and palpitations GI: Negative for abdominal discomfort, changes in bowel habits, blood in stool or black stools PAST MEDICAL HISTORY: Patient Active Problem List Diagnosis Date Noted Abdominal pain 09/30/2024 ADHD (attention deficit hyperactivity disorder) 09/30/2024 Bilateral kidney stones 09/20/2023 Fatty liver 09/20/2023 Degenerative disc disease, lumbar 09/08/2020 PTSD (post-traumatic stress disorder) 01/08/2019 Obesity (BMI 30-39.9) 08/02/2016 JOSE III (cervical intraepithelial neoplasia grade III) with severe dysplasia 06/04/2016 Post depression 11/10/2014 Migraine 01/12/2014 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 08/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 Dysthymic disorder 08/21/2007 Mild intermittent asthma 05/27/2007 Past Surgical History: Procedure Laterality Date OTHER SURGICAL HISTORY PROCEDURE: HISTORICAL EAR SURGERY; COMMENT: also had tubes in ears OTHER SURGICAL HISTORY PROCEDURE: INJECT NERVE BLOCK; LUMB/SACR,ADDL; COMMENT: nerve block in back for ankle issues OTHER SURGICAL HISTORY 09/2015 PROCEDURE: HISTORICAL D&C; COMMENT: incomplete Ab OTHER SURGICAL HISTORY 11/21/2023 PROCEDURE: HISTORY OTHER; COMMENT: Sleeve gastrectomy with gastropexy TONSILLECTOMY PROCEDURE: HISTORICAL TONSILLECTOMY SOCIAL HISTORY: Social History Tobacco Use Smoking status: Former Current packs/day: 0.30 Types: Cigarettes Smokeless tobacco: Never Substance Use Topics Alcohol use: Yes FAMILY HISTORY: Family History Problem Relation Name Age of Onset Other (Other: blood clot) Paternal Grandmother Prostate cancer Paternal Grandfather Diabetes Mother Hypertension Mother Kidney failure Mother Diabetes Father Hypertension Father No Known Problems Brother Diabetes Brother Dementia Maternal Grandmother Stroke Maternal Grandfather Coronary artery disease Maternal Grandfather Asthma Daughter Asthma Son Other (Other: ODD) Son Asthma Other ?uncle as a child Diabetes Other MGGM Blindness Neg Hx Cataracts Neg Hx Glaucoma Neg Hx Macular degeneration Neg Hx Strabismus Neg Hx Other cancer Neg Hx Family Status Relation Name Status PGM PGF Mother Father Alive adopted Brother Alive Brother (Not Specified) MGM MGF Daughter Alive Son Alive Other (Not Specified) Other (Not Specified) Neg Hx (Not Specified) No partnership data on file MEDICATIONS DISCONTINUED/REORDERED: Medications Discontinued During This Encounter Medication Reason buPROPion XL (WELLBUTRIN XL) 300 mg 24 hr tablet Patient Discharge clotrimazole (LOTRIMIN) 1 % cream Patient Discharge dicyclomine (BENTYL) 10 mg capsule Patient Discharge LORazepam (ATIVAN) 1 mg tablet Patient Discharge norethindrone (NARCISO,BELLE,RHONDA,MICRONOR) 0.35 mg tablet Patient Discharge phentermine (ADIPEX-P) 37.5 mg tablet Patient Discharge topiramate (TOPAMAX) 25 mg tablet Patient Discharge traZODone (DESYREL) 50 mg tablet Patient Discharge ACTIVE MEDICATIONS: Outpatient Medications Marked as Taking for the 01/27/25 encounter (Office Visit) with Armin Kline MD Medication Sig Dispense Refill albuterol HFA (PROAIR HFA ; PROVENTIL HFA ; VENTOLIN HFA) 90 mcg/actuation inhaler Inhale 2 Puffs into the lungs every 4 hours as needed for Shortness of Breath for up to 180 days. buPROPion XL (WELLBUTRIN XL) 150 mg 24 hr tablet Take 1 tablet (150 mg total) by mouth 1 (one) timeeach day in the morning. cyanocobalamin (VITAMIN B-12) 100 mcg tablet Take by mouth. famotidine (PEPCID) 20 mg tablet Take 1 Tablet by mouth 2 times daily as needed for Heartburn for up to 180 days. melatonin 5 mg tablet topiramate (TOPAMAX) 50 mg tablet (Patient taking differently: 2 tablets (100 mg total).) ALLERGIES: Augmentin [amoxicillin-pot clavulanate], Cefzil [cefprozil], Cephalosporins, Macrolide antibiotics,and Penicillins PHYSICAL EXAM: Blood pressure 80/50, pulse 69, temperature 36.6 ??C (97.9 ??F), temperature source Temporal, resp.rate 14, height 1.676 m (66 ), weight 63.6 kg (140 lb 3.2 oz), last menstrual period 01/26/2025. Body mass index is 22.63 kg/m??. Plan is deferred until next visit APPEARANCE: in mild distress HEART: RRR with normal S1 and S2, no murmurs, no gallops, no JVD appreciated CHEST: non-tender LUNG: clear to auscultation bilaterally LABS: As mentioned above IMPRESSION: 1. Hospital discharge follow-up 2. Iron deficiency anemia due to chronic blood loss 3. Hypotension due to hypovolemia 4. Symptomatic anemia PLAN: Patient with anemia secondary to menorrhagia. I did not see any iron labs done at [facility].Most likely has an iron deficiency anemia due to the chronic blood loss due to menorrhagia as well as recent surgery. Iron deficiency most likely worsened given her history of bariatric surgery as well. She has not been on any iron supplements. In the office today her blood pressure is low and she is symptomatic with dizziness, headache. Likely she would benefit from IV fluids and I advised her to go to the ER. Initially she did not want togo but given above-mentioned history and her vital signs in the office, she agreed. Discussed risk of not pursuing emergent treatment at this time. Patient will follow-up after the ER/hospital discharge. Medication and lab orders: Orders Placed This Encounter Procedures CBC and differential Comprehensive metabolic panel Iron and TIBC Ferritin Armin Kline MD on 01/27/2025 at 2:46 PM EDT documented in this encounter Plan of Treatment Upcoming Encounters Date Type Department Care Team (Late st Contact Info) Description 02/05/2025 10:30 AM EDT Office Visit [place] [address] [place], [place] [phone] Armin Kline MD [address] [place], [place] 02/18/2025 9:30 AM EDT Office Visit Obstetrics and Gynecology - [address] [phone] Daniela Harper, [address] Scheduled Orders Name Type Priority Associated Diagnoses Orde r Schedule CBC and differential Lab STAT Iron deficiency anemia due to chronic blood loss 1 Occurrences starting 01/27/2025 until 01/27/2026 Comprehensive metabolic panel Lab Routine Iron deficiency anemia due to chronic blood loss 1 Occurrences starting 01/27/2025 until 01/27/2026 Iron and TIBC Lab Routine Iron deficiency anemia due to chronic blood loss 1 Occurrences starting 01/27/2025 until 01/27/2026 Ferritin Lab Routine Iron deficiency anemia due to chronic blood loss 1 Occurrences starting 01/27/2025 until 01/27/2026 documented as of this encounter Visit Diagnoses Diagnosis Hospital discharge follow-up- Primary Other follow-up examination Iron deficiency anemia due to chronic blood loss Iron deficiency anemia secondary to blood loss (chronic) Hypotension due to hypovolemia Symptomatic anemia documented in this encounter Discontinued Medications Medication Sig Discontinue Reason Start Date End Da te buPROPion XL (WELLBUTRIN XL) 300 mg 24 hr tablet Patient Discharge 11/14/2022 01/27/2025 clotrimazole (LOTRIMIN) 1 % cream Apply 1 Application topically 2 (two) times a day. Patient Discharge 03/16/2024 01/27/2025 dicyclomine (BENTYL) 10 mg capsule Patient Discharge 10/24/2022 01/27/2025 LORazepam (ATIVAN) 1 mg tablet Patient Discharge 06/17/2020 01/27/2025 norethindrone (NARCISO,BELLE,RHONDA, MICRONOR) 0.35 mg tablet Take 1 tablet (0.35 mg total) by mouth 1 (one) time each day. Patient Discharge 03/15/2023 01/27/2025 phentermine (ADIPEX-P) 37.5 mg tablet Patient Discharge 01/27/2025 topiramate (TOPAMAX) 25 mg tablet Patient Discharge 02/26/2024 01/27/2025 traZODone (DESYREL) 50 mg tablet Patient Discharge 03/10/2024 01/27/2025 documented as of this encounter Historical Medications * This list may reflect changes made after this encounter. B complex-vitamin C-folic acid (JAVAN-BERTO) 1-60-300 mg-mg-mcg tablet Take 1 tablet by mouth 1 (one) time each day with breakfast. added in this encounter Care Teams Transformer Tester Relationship Specialty Start Date End Date Armin Kline MD [address] [place] [address] PCP - General Internal Medicine 10/05/24 documented as of this encounter
== END 2025-01-28 11:06 | disposition home or self-care (01) ==
LOC: HO.HBS 10:07
PROVIDERS: PCP Internal Medicine; Visit Provider Physician Assistant Surgical
DX: Z98.890 Other specified postprocedural states (principal)
CPT/HCPCS: 99024

== ENCOUNTER → 2025-01-28 10:07 | Outpatient (BNVA) | payer OTHER, SELFPAY | PROVIDERS: PCP Internal Medicine; Visit Provider Physician Assistant Surgical | DX: Z87.2 Personal history of diseases of the skin and subcutaneous tissue (principal); Z98.890 Other specified postprocedural states | CPT/HCPCS: 99212 ==

== ENCOUNTER 2025-02-04 12:51 | Outpatient (AMB) | payer OTHER, SELFPAY ==
[2025-02-04 12:58] VITALS: BP 107/59; PULSE 69; O2SAT 100
--- NOTE | 2025-02-04 12:58 | A.OFFVIS_ITS ---
VS Expanded 02/04/25 12:58 BP 107/59 L Blood Pressure Location Lt brachial Blood Pressure Position Sitting Pulse 69 Pulse Oximetry 100 Intake Visit Reasons: (OV) s/p Panniculectomy 01/20/25 Intake Note: She states that she has a lump on the bottom of her incision. She is not happy with her results. She feels more skin could have been removed. Allergies erythromycin base [From Pediazole] Allergy (Severe, Verified 02/04/25 12:59) Unresponsive, cold, clammy (as an infant) sulfisoxazole [From Pediazole] Allergy (Severe, Verified 02/04/25 12:59) Unresponsive, cold, clammy (as an infant) strawberry Allergy (Intermediate, Verified 02/04/25 12:59) Hives Cephalosporins Allergy (Verified 02/04/25 12:59) Abdominal Pain Macrolide Antibiotics Allergy (Verified 02/04/25 12:59) Unknown Penicillins [PCN] Allergy (Verified 02/04/25 12:59) Unknown Augmentin Allergy (Intermediate, Uncoded 02/04/25 12:59) hives HPI Comments Details: Patient is a pleasant 34-year-old female who returns to the office today in [facility]. She is status post panniculectomy performed on 01/20/2025. She states that she was concerned about swelling in the lower right suprapubic area. She reports a proximally 40 mL average of serosanguineous fluid per day. Continues antibiotics and following meal plan per her report. [facility] Medical History Excess skin Overweight Congenital intra-abdominal adhesions BMI 32.0-32.9,adult Arthritis Back pain Abnormal Pap smear of cervix Constipation Kidney stones Migraines Cough Scoliosis Hypertension Rheumatoid arthritis Insomnia Anxiety Depression DJD (degenerative joint disease) GERD (gastroesophageal reflux disease) Asthma BMI 38.0-38.9,adult Surgical History Obesity History of sleeve gastrectomy (11/21/23) History of loop electrical excision procedure (LEEP) BMI 35.0-35.9,adult Hx of tonsillectomy History of ear surgery Family History Mother No problems noted. 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 at home: Yes (children, [place] have family help post-op) Do you presently have visiting nurse or other home services: Yes (Paula BIGGS) 75 years or older and lives alone: No Alcohol intake: current Alcohol intake frequency: holidays/special occasions only Patient Tobacco Use Status: Former Tobacco user Tobacco use type: Cigarette Second Hand Smoke Exposure: No Advance Directives Date on File: 01/22/25 service: No Physical Exam Vital Signs: Last Vital Signs Pulse 69 02/04/25 12:58 BP 107/59 L 02/04/25 12:58 Pulse Ox 100 02/04/25 12:58 Skin Other: Transverse abdominal incision healing nicely. No evidence of infection or dehiscence. Umbilicus healing nicely. No evidence of infection. Viable. Normal palpation 2 week postop right suprapubic region. Assessment & Plan Assessment & Plan (1) S/P panniculectomy: Code(s): Z98.890 - Other specified postprocedural states Category: Surgical Plan: Encouraged patient to continue to allow the healing process and wait until at least 3 months before judging her satisfaction or dissatisfaction to the results of her procedure. Continue to monitor drain output. Continue antibiotics and meal plan. Return to clinic as planned
--- OUTSIDE RECORDS SUMMARY | 2025-02-04 13:58 | XMS_ITS | Encounter Summary ---
Author Organization [facility] Address [address] [place] [address] Care Team Providers Care Director Of Revenue Name Role Phone Armin Kline MD Primary Care Provider Encounter Details Date Type Department Care Team (Late st Contact Info) Description 01/28/2025 Telephone Adult Medicine [facility] [address] [place] [address] Armin Kline MD [address] [place] [address] Social History Tobacco Use Types Packs/Day Years [...] 10:30 AM EDT Office Visit Adult Medicine [address] [phone] Armin Kline MD [address] [place] [address] 02/18/2025 9:30 AM EDT Office Visit Obstetrics and Gynecology - [address] [phone] Daniela Harper CNM [address] [place] [address] documented as of this encounter Visit Diagnoses Not on filedocumented in this encounter Care Teams Director Of Revenue Relationship Specialty Start Date End Date Armin Kline MD [address] [place] [address] PCP - General Internal Medicine 10/05/24 documented as of this encounter
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
== END 2025-02-04 13:34 | disposition home or self-care (01) ==
LOC: HO.HBS 12:52
PROVIDERS: PCP Internal Medicine; Visit Provider Physician Assistant Surgical
DX: Z98.890 Other specified postprocedural states (principal)
CPT/HCPCS: 99024

== ENCOUNTER → 2025-02-04 12:51 | Outpatient (BNVA) | payer OTHER, SELFPAY | PROVIDERS: PCP Internal Medicine; Visit Provider Physician Assistant Surgical | DX: Z48.817 Encounter for surgical aftercare following surgery on the skin and subcutaneous tissue (principal); Z98.890 Other specified postprocedural states | CPT/HCPCS: 99212 ==

== ENCOUNTER 2025-02-12 14:35 | Outpatient (AMB) | payer OTHER, SELFPAY ==
--- NOTE | 2025-02-12 14:30 | A.OFFVIS_ITS ---
Intake Visit Reasons: (OV) s/p Panniculectomy 01/20/25 Allergies erythromycin base [From Pediazole] Allergy (Severe, Verified 02/04/25 12:59) Unresponsive, cold, clammy (as an ) sulfisoxazole [From Pediazole] Allergy (Severe, Verified 02/04/25 12:59) Unresponsive, cold, clammy (as an infant) strawberry Allergy (Intermediate, Verified 02/04/25 12:59) Hives Cephalosporins Allergy (Verified 02/04/25 12:59) Abdominal Pain Macrolide Antibiotics Allergy (Verified 02/04/25 12:59) Unknown Penicillins [PCN] Allergy (Verified 02/04/25 12:59) Unknown Augmentin Allergy (Intermediate, Uncoded 02/04/25 12:59) hives [facility] Medical History Excess skin Overweight Congenital intra-abdominal adhesions BMI 32.0-32.9,adult Arthritis Back pain Abnormal Pap smear of cervix Constipation Kidney stones Migraines Cough Scoliosis Hypertension Rheumatoid arthritis Insomnia Anxiety Depression DJD (degenerative joint disease) GERD (gastroesophageal reflux disease) Asthma BMI 38.0-38.9,adult Surgical History Obesity History of sleeve gastrectomy (11/21/23) History of loop electrical excision procedure (LEEP) BMI 35.0-35.9,adult Hx of tonsillectomy History of ear surgery Family History Mother No problems noted. Father Diabetes Social History Household Members: Family Housing: House Are you a primary body care manager to a significant other at home: Yes (children, will have family help post-op) Do you presently have visiting nurse or other home services: Yes (Paula BIGGS) 75 years or older and lives alone: No Alcohol intake: current Alcohol intake frequency: holidays/special occasions only Patient Tobacco Use Status: Former Tobacco user Tobacco use type: Cigarette Second Hand Smoke Exposure: No Advance Directives Date on File: 01/22/25 service: No Coding
[2025-02-12 14:36] VITALS: BP 116/74; PULSE 68; TEMP 36.5; O2SAT 99
--- NOTE | 2025-02-12 14:36 | MHC.OFFVIS ---
Vital Signs 02/12/25 14:36 Height 5 ft 5 in BP 116/74 Blood Pressure Location Lt brachial Position Sitting Pulse 68 Pulse Source Pulse Oximeter Temp 97.7 F Temp Source Temporal Artery Scan Pulse Oximetry (%) 99 Oxygen Delivery Method Room Air Intake Visit Reasons: (OV) s/p Panniculectomy 01/20/25 Allergies erythromycin base [From Pediazole] Allergy (Severe, Verified 02/04/25 12:59) Unresponsive, cold, clammy (as an ) sulfisoxazole [From Pediazole] Allergy (Severe, Verified 02/04/25 12:59) Unresponsive, cold, clammy (as an ) strawberry Allergy (Intermediate, Verified 02/04/25 12:59) Hives Cephalosporins Allergy (Verified 02/04/25 12:59) Abdominal Pain Macrolide Antibiotics Allergy (Verified 02/04/25 12:59) Unknown Penicillins [PCN] Allergy (Verified 02/04/25 12:59) Unknown Augmentin Allergy (Intermediate, Uncoded 02/04/25 12:59) hives HPI Comments Details: Pt is 3 weeks s/p panniculectomy 01/20/2025. No fevers at home. Tolerating meal plan per Dr. Sahu On abx. Drain output remains 25cc or more per day. [facility] Medical History Excess skin Overweight Congenital intra-abdominal adhesions BMI 32.0-32.9,adult Arthritis Back pain Abnormal Pap smear of cervix Constipation Kidney stones Migraines Cough Scoliosis Hypertension Rheumatoid arthritis Insomnia Anxiety Depression DJD (degenerative joint disease) GERD (gastroesophageal reflux disease) Asthma BMI 38.0-38.9,adult Surgical History Obesity History of sleeve gastrectomy (11/21/23) History of loop electrical excision procedure (LEEP) BMI 35.0-35.9,adult Hx of tonsillectomy History of ear surgery Family History Mother No problems noted. Father Diabetes Social History Household Members: Family Housing: House Are you a primary care taker to a significant other at home: Yes (children, will have family help post-op) Do you presently have visiting nurse or other home services: Yes (Paula BIGGS) 75 years or older and lives alone: No Alcohol intake: current Alcohol intake frequency: holidays/special occasions only Patient Tobacco Use Status: Former Tobacco user Tobacco use type: Cigarette Second Hand Smoke Exposure: No Advance Directives Date on File: 01/22/25 service: No Physical Exam Vital Signs: Last Vital Signs Temp 97.7 F 02/12/25 14:36 Pulse 68 02/12/25 14:36 BP 127/69 02/12/25 14:36 Pulse Ox 99 02/12/25 14:36 Oxygen Delivery Method Room Air 02/12/25 14:36 Const General: cooperative, comfortable and no acute distress Orientation/consciousness: patient oriented x3 GI Other: soft, nontender, nondistended incision healing well with steri-strips c/d/i, umbilicus viable, no erythema surrounding incisions, drain output SS, sutures in place at umbilicus Neuro General: patient oriented x3 Assessment & Plan Assessment & Plan (1) S/P panniculectomy: Code(s): Z98.890 - Other specified postprocedural states Category: Surgical (2) S/P laparoscopic sleeve gastrectomy: Code(s): Z98.84 - Bariatric surgery status Category: Surgical Plan Umbilical sutures removed today. Drain left in place. Continue high protein diet. ABX keflex 500 BID x 2 weeks, extended as needed?(at least until drain comes out plus 1 week).? Drain out after consistently 20 mL or less daily.? Abdominal binder at all times except for care x 1 month?MINIMUM. If there are concerns longer.? No driving?until drain out.? No walking outside or exercise for 6 weeks minimum. Assistance getting up for 4 weeks minimum.?No lifting greater than?10 pounds x 2 months and no abdominal exercises x 3 months. RTC 1 week. Coding Level of Care Code Est Pt Level 4 (77387) Complex EM visit Add On G2211 Diagnoses S/P panniculectomy Z98.890 S/P laparoscopic sleeve gastrectomy Z98.84 Time Spent (min) 30
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
--- OUTSIDE RECORDS SUMMARY | 2025-02-12 14:51 | XMS_ITS | Encounter Summary ---
Author Organization [facility] Address [address] [place] [address] Care Team Providers Care Ophthalmic Medical Technologist Name Role Phone Armin Kline MD Primary Care Provider Encounter Details Date Type Department Care Team (Late st Contact Info) Description 02/05/2025 Telephone Adult Medicine [facility] [address] [place] [address] Armin Kline MD [address] [place] [address] Social History Tobacco Use Types Packs/Day Years [...] care for your loved ones. For example, school childcare attendant or elderly care for an older adult? [...] PM EDT documented as of this encounter Plan of Treatment Upcoming Encounters Date Type Department Care Team (Late st Contact Info) Description 02/18/2025 9:30 AM EDT Office Visit Obstetrics and Gynecology - [address] [phone] Daniela Harper CNM [address] [place] [address] 05/11/2025 9:30 AM EDT Office Visit Adult Medicine [facility] [address] [place] [address] Armin Kline MD [address] [place] [address] documented as of this encounter Visit Diagnoses Not on filedocumented in this encounter Care Teams Ophthalmic Medical Technologist Relationship Specialty Start Date End Date Armin Kline MD [address] [place] [address] PCP - General Internal Medicine 10/05/24 documented as of this encounter
--- OUTSIDE RECORDS SUMMARY | 2025-02-12 14:51 | XMS_ITS | Encounter Summary ---
Author Organization [facility] Address [address] [place] [address] Care Team Providers Care Baker Doughnut Name Role Phone Armin Kline MD Primary Care Provider Reason for Visit * Reason Comments HOME HEALTH CERT Encounter Details Date Type Department Care Team (Late st Contact Info) Description 02/10/2025 Billing Patient Not Present Adult Medicine [facility] [address] [place] [address] Armin Kline MD [address] [place] [address] Social History Tobacco Use Types Packs/Day Years [...] for your loved ones. For example, school child care attendant or elderly care for an older [...] EDT Office Visit Obstetrics and Gynecology - [address] [phone] Daniela Harper CNM [address] [place] [address] 05/11/2025 9:30 AM EDT Office Visit Adult Medicine [facility] [address] [place] [address] Armin Kline MD [address] [place] [address] documented as of this encounter Visit Diagnoses Not on filedocumented in this encounter Care Teams Baker Doughnut Relationship Specialty Start Date End Date Armin Kline MD [address] [place] [address] PCP - General Internal Medicine 10/05/24 documented as of this encounter
== END 2025-02-12 16:34 | disposition home or self-care (01) ==
LOC: HO.HBS 14:35
PROVIDERS: PCP Internal Medicine; Visit Provider Physician Assistant Surgical
DX: Z98.890 Other specified postprocedural states (principal); Z98.84 Bariatric surgery status
CPT/HCPCS: 99024

== ENCOUNTER → 2025-02-12 14:35 | Outpatient (BNVA) | payer OTHER, SELFPAY | PROVIDERS: PCP Internal Medicine; Visit Provider Physician Assistant Surgical | DX: Z48.817 Encounter for surgical aftercare following surgery on the skin and subcutaneous tissue (principal); Z98.84 Bariatric surgery status; Z98.890 Other specified postprocedural states | CPT/HCPCS: 99212 ==

== ENCOUNTER 2025-02-19 12:45 | Outpatient (AMB) | payer OTHER, SELFPAY ==
--- OUTSIDE RECORDS SUMMARY | 2025-02-19 13:21 | XMS_ITS | Encounter Summary ---
Author Organization [facility] Address [address] [place] [address] Care Team Providers Care Business Management Analyst Name Role Phone Armin Kline MD Primary Care Provider Encounter Details Date Type Department Care Team (Late st Contact Info) Description 02/05/[address] [facility] [address] [place] [address] Armin Kline MD [address] [place] [address] Social History Tobacco Use Types Packs/Day Years [...] for your loved ones. For example, child nutrition assistant or elderly care for an older [...] Care Team (Late st Contact Info) Description 04/05/2025 9:45 AM EDT Appointment [facility]trasound - [facility] [address] [place] [address] 04/06/2025 2:00 PM EDT Office Visit Obstetrics and Gynecology - [address] [place] [phone] Cinthia Franklin PA [address] [place] [address] 05/11/2025 9:30 AM EDT Office Visit Adult Medicine [facility] [address] [place] [phone] Armin Kline MD [address] [place] [address] documented as of this encounter Visit Diagnoses Not on filedocumented in this encounter Care Teams Business Management Analyst Relationship Specialty Start Date End Date Armin Kline MD [address] [place] [address] PCP - General Internal Medicine 10/05/24 documented as of this encounter
--- OUTSIDE RECORDS SUMMARY | 2025-02-19 13:21 | XMS_ITS | Encounter Summary ---
Author Organization [facility] Address [address] [place] [address] Care Team Providers Care Balloon Sander Name Role Phone Armin Kline MD Primary Care Provider Reason for Referral * Imaging (Routine) - Pending Review Specialty Diagnoses / Procedures Referred By Kacy templeton Referred To Contact Radiology Diagnoses Menorrhagia with irregular cycle Procedures US Pelvis Non OB Complete Daniela Harper CNM [address] [place] [address] Phone: tel: fax: [address] Phone: tel: Referral ID Status Reason Start Date Expiration Date V isits Requested Visits Authorized [id number] Pending Review 02/18/2025 02/18/2026 1 1 Reason for Visit * Reason Comments Contraception Encounter Details Date Type Department Care Team (Late st Contact Info) Description 02/18/2025 9:30 AM EDT Office Visit Obstetrics and Gynecology - [address] [phone] Daniela Harper CNM [address] [place] [address] Menorrhagia with irregular cycle (Primary Dx); Iron deficiency anemia due to chronic blood loss; Encounter for initial prescription of contraceptive pills Social History Tobacco Use Types Packs/Day Years [...] for your loved ones. For example, child development teacher or elderly care for an older adult? [...] is your living situation? 0 02/05/2025 Comments Unknown Sex and Gender Information Value Date Recorded Sex Assigned at Female 01/27/2025 5:58 PM EDT Legal Sex Female 5:00 PM EST Gender Identity Female 01/27/2025 5:58 PM EDT Sexual Orientation Choose not to disclose 2024 5:58 PM EDT documented as of this encounter Last Filed Vital Signs Vital Sign Reading Time Taken Comments Blood Pressure 120/74 02/18/2025 9:38 AM EDT Pulse 80 02/18/2025 9:38 AM EDT Temperature - - Respiratory Rate 18 02/18/2025 9:38 AM EDT Oxygen Saturation - - Inhaled Oxygen Concentration - - Weight 65.3 kg (144 lb) 02/18/2025 9:38 AM EDT Height 165.1 cm (5' 5 ) 02/18/2025 9:38 AM EDT Body Mass Index 23.96 02/18/2025 9:38 AM EDT documented in this encounter Ordered Prescriptions Prescription Sig Dispense Quantity Refills Last Filled Start Date End Date norethindrone (NARCISO,BELLE,HEAT HER,MICRONOR) 0.35 mg tablet Take 1 tablet (0.35 mg total) by mouth 1 (one) time each day. 28 tablet 11 02/18/2025 02/17/2026 documented in this encounter Progress Notes * Danilea Harper CNM - 02/18/2025 9:30 AM EDT Images from the original note were not included. CHIEF COMPLAINT: Contraception IDENTIFIER:Ana Seals is a 34 y.o. female HPI: Pt presents today for evaluation of for abnormal bleeding and contraception consult. Ana had a panniculectomy on January 21, 2025 at [facility]. Perioperatively it was noted that she had iron deficit anemia and received Venofer intraoperatively. After she was discharged she developed nausea and vomiting and was readmitted to the hospital. During admission she was found to be anemic and received two units of PRBC. Ana is voicing concerns for heavy vaginal bleeding and irregular cycles contributing to anemia. She is due to have menses any day now. Last CBC was January 27 when she presented to [facility] ER for hypotension and dizziness after being seen in office. CBC at that time wa s 10.3 and 33.9. Ana reports taking iron supplements at home. Partner of 6 years with vasectomy. She is requesting contraception to manage bleeding. Has used pills in past. Also used a IUD prior however worsened ovarian cysts. Today also reports mild headache that she feels when she is experiencing anemia. ROS: GENERAL: Reports feeling well BREAST: Denies concerns at today's visit : negative for dysuria, frequency, and hematuria ANALYSIS MGR: abnormal bleeding PAST MEDICAL HISTORY: OB History Para Term AB Living 3 2 2 0 1 2 SAB IAB Ectopic Multiple Live Births 1 0 0 0 2 # Outcome Date GA Lbr Rik/2nd Weight Sex Type Anes PTL Lv 3 SAB 09/22/15 Comments: D&C 2 Term 10/25/14 41w0d 4139 g (146 oz) F Vag-Spont EPI AICHA 1 Term 09/20/09 41w2d 14:00 4111 g (145 oz) M Vag-Spont EPI AICHA Comments: Ind x 3 d Patient Active Problem List Diagnosis Abdominal pain ADHD (attention deficit hyperactivity disorder) 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 Bilateral kidney stones JOSE III (cervical intraepithelial neoplasia grade III) with severe dysplasia Degenerative disc disease, lumbar Dysthymic disorder Fatty liver Migraine Mild intermittent asthma Obesity (BMI 30-39.9) Post depression PTSD (post-traumatic stress disorder) SOCIAL HISTORY: Social History Tobacco Use Smoking status: Former Current packs/day: 0.30 Types: Cigarettes Smokeless tobacco: Never Substance Use Topics Alcohol use: Yes Drug use: Not Currently Types: Marijuana/Cannabis FAMILY HISTORY: Family History Problem Relation Name [...] Strabismus Neg Hx Other cancer Neg Hx I have reviewed the following sections of the chart: active problem list, medication list, allergies MEDICATIONS: Your medication list Accurate as of February 18, 2025 10:20 AM. If you have any questions, ask your nurse or doctor. START taking these medications Instructions Last Dose Given Next Dose Due norethindrone 0.35 mg tablet Commonly known as: BELLE STUART HEATHER, MICRONOR Started by: Brennon Harper CNM Take 1 tablet (0.35 mg total) by mouth 1 (one) time each day. CONTINUE taking these medications Instructions Last Dose Given Next Dose Due albuterol HFA 90 mcg/actuation inhaler Commonly known as: PROAIR HFA ; PROVENTIL HFA ; VENTOLIN HFA Inhale 2 Puffs into the lungs every 4 hours as needed for Shortness of Breath for up to 180 days. B complex-vitamin C-folic acid 1-60-300 mg-mg-mcg tablet Commonly known as: JAVAN-BERTO Take 1 tablet by mouth 1 (one) time each day with breakfast. buPROPion XL 150 mg 24 hr tablet Commonly known as: WELLBUTRIN XL Take 1 tablet (150 mg total) by mouth 1 (one) time each day in the morning. cyanocobalamin 100 mcg tablet Commonly known as: VITAMIN B-12 Take by mouth. famotidine 20 mg tablet Commonly known as: PEPCID Take 1 Tablet by mouth 2 times daily as needed for Heartburn for up to 180 days. ferrous sulfate 325 mg (65 mg iron) EC tablet Take 1 tablet (325 mg total) by mouth 1 (one) time each day with breakfast. Do not crush, chew, or split. melatonin 5 mg tablet polyethylene glycol 17 gram packet Commonly known as: MIRALAX Take 17 g by mouth 1 (one) time each day if needed for constipation. terbinafine 250 mg tablet Commonly known as: LamISIL Take 1 tablet (250 mg total) by mouth 1 (one) time each day. topiramate 50 mg tablet Commonly known as: TOPAMAX Where to Get Your Medications These medications were sent to [facility]/pharmacy #[id number] - [place], [address], [place] [facility] [address] [place] [address], [facility] [id number] norethindrone 0.35 mg tablet Contraception: Vasectomy ALLERGIES: Allergies Allergen Reactions Augmentin [Amoxicillin-Pot Clavulanate] Hives Cefzil [Cefprozil] Cephalosporins Other Reaction(s): Rash/Dermatitis Macrolide Antibiotics Other Reaction(s): Rash/Dermatitis Has taken zithro 2008 without prob Penicillins Other Reaction(s): Rash/Dermatitis Took amoxil without prob 2007 and 2010 PHYSICAL EXAM: Visit Vitals BP 120/74 (BP Location: Left arm, Patient Position: Sitting) Pulse 80 Resp 18 Ht 1.651 m (65 ) Wt 65.3 kg (144 lb) LMP 01/26/2025 BMI 23.96 kg/m?? OB Status Unknown Smoking Status Former BSA 1.72 m?? APPEARANCE:Healthy, alert, active, cooperative, and in no distress BREAST: Not examined ABDOMEN: Not examined EXTERNAL GENITALIA: Not examined URETHRA: Not examined VAGINA: deferred CERVIX: not evaluated UTERUS: not examined PSYCH: affect appropriate LABS: ASSESSMENT: 1. Menorrhagia with irregular cycle 2. Iron deficiency anemia due to chronic blood loss 3. Encounter for initial prescription of contraceptive pills PLAN: Follow up in: 3 months. To Review efficacy of contraception and bleeding. Reviewed used of progesterone pills. Did not opt for combined due to history of migraines Reviewed importance of taking pill everyday. Also reviewed possible side effect of irregular bleeding. Educated patient that POP should help lessen menstrual bleeding Encouraged patient to schedule appointment with MD/PA for consultation for uterine artery ablation. Advised patient to obtain CBC after appointment and also schedule pelvic ultrasound once abdominal binder and drain is removed Orders Placed This Encounter Procedures US Pelvis Non OB Complete CBC and differential Cheryl ARANA present for exam and decision making. I have reviewed the chart and agree with plan. Daniela Harper CNM documented in this encounter Plan of Treatment Upcoming Encounters Date Type Department Care Team (Late st Contact Info) Description 04/05/2025 9:45 AM EDT Appointment Ultrasound - [facility] [address] [place] [address] 04/06/2025 2:00 PM EDT Office Visit Obstetrics and Gynecology - [address] [phone] Cinthia Franklin PA [address] [place] [address] 05/11/2025 9:30 AM EDT Office Visit Adult Medicine [facility] [address] [place] [phone] Armin Kline MD [address] [place] [address] Scheduled Orders Name Type Priority Associated Diagnoses Orde r Schedule US Pelvis Non OB Complete Imaging Routine Menorrhagia with irregular cycle Expected: 02/18/2025, Expires: 02/18/2026 documented as of this encounter Visit Diagnoses Diagnosis Menorrhagia with irregular cycle- Primary Iron deficiency anemia due to chronic blood loss Iron deficiency anemia secondary to blood loss (chronic) Encounter for initial prescription of contraceptive pills documented in this encounter Care Teams Balloon Sander Relationship Specialty Start Date End Date Armin Kline MD [address] [place] [id number] PCP - General Internal Medicine 10/05/24 documented as of this encounter
--- OUTSIDE RECORDS SUMMARY | 2025-02-19 13:21 | XMS_ITS | Encounter Summary ---
Author Organization [facility] Address [address] [place] [address] Care Team Providers Care Education And Training Manager Name Role Phone Armin Kline MD Primary Care Provider Reason for Visit * Reason Comments HOME HEALTH CERT Encounter Details Date Type Department Care Team (Late st Contact Info) Description 02/10/2025 Billing Patient Not Present Adult Medicine [facility] [address] [place] [address] Armin Kline MD [address] [place] [address] Social History Tobacco Use Types Packs/Day Years [...] for your loved ones. For example, child support investigator or elderly care for an older adult? [...] Upcoming Encounters Date Type Department Care Team ([facility] st Contact Info) Description 04/05/2025 9:45 AM EDT Appointment Ultrasound - [facility] [address] [facility] [place] [address] 04/06/2025 2:00 PM EDT Office Visit Obstetrics and Gynecology - [address] [place] [phone] Cinthia Franklin PA [address] [place] [address] 05/11/2025 9:30 AM EDT Office Visit Adult Medicine [address] [phone] Armin Kline MD [address] [place], [place] documented as of this encounter Visit Diagnoses Not on filedocumented in this encounter Care Teams Education And Training Manager Relationship Specialty Start Date End Date Armin Kline MD [address] [place] [address] PCP - General Internal Medicine 10/05/24 documented as of this encounter
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
[2025-02-19 13:23] VITALS: BP 133/89; PULSE 77; TEMP 36.2; O2SAT 99
--- NOTE | 2025-02-19 13:23 | MHC.OFFVISWM ---
VS Expanded 02/19/25 13:23 BP 133/89 Blood Pressure Location Rt brachial Blood Pressure Position Sitting Pulse 77 Pulse Source Pulse Oximeter Temp 97.2 F Temperature Source Temporal Artery Scan Pulse Oximetry 99 Oxygen Delivery Method Room Air Intake Visit Reasons: (OV) s/p Panniculectomy 01/20/25 Allergies erythromycin base [From Pediazole] Allergy (Severe, Verified 02/04/25 12:59) Unresponsive, cold, clammy (as an infant) sulfisoxazole [From Pediazole] Allergy (Severe, Verified 02/04/25 12:59) Unresponsive, cold, clammy (as an ) strawberry Allergy (Intermediate, Verified 02/04/25 12:59) Hives Cephalosporins Allergy (Verified 02/04/25 12:59) Abdominal Pain Macrolide Antibiotics Allergy (Verified 02/04/25 12:59) Unknown Penicillins [PCN] Allergy (Verified 02/04/25 12:59) Unknown Augmentin Allergy (Intermediate, Uncoded 02/04/25 12:59) hives HPI Comments Details: Patient is a pleasant 34-year-old female who returns to the office today in follow-up. She is post panniculectomy performed 01/20/2025. She reports approximately 25-30 mL of serosanguineous fluid from the collection bulb on a daily basis. Denies any complaints of incisional pain. She continues antibiotics and following the meal plan. 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 Father Diabetes Social History (Reviewed 02/04/25 @ 12:59 by AMADOU Ross Household Members: Family Housing: House Are you a primary intensive care medicine specialist to a significant other at home: Yes (children, will have family help post-op) Do you presently have visiting nurse or other home services: Yes (Paula BIGGS) 75 years or older and lives alone: No Alcohol intake: current Alcohol intake frequency: holidays/special occasions only Patient Tobacco Use Status: Former Tobacco user Tobacco use type: Cigarette Second Hand Smoke Exposure: No Advance Directives Date on File: 01/22/25 service: No Physical Exam Vital Signs: Last Vital Signs Temp 97.2 F 02/19/25 13:23 Pulse 77 02/19/25 13:23 BP 133/89 02/19/25 13:23 Pulse Ox 99 02/19/25 13:23 Oxygen Delivery Method Room Air 02/19/25 13:23 Skin Other: Umbilical and transverse abdominal incisions healing nicely. Assessment & Plan Assessment & Plan (1) S/P panniculectomy: Code(s): Z98.890 - Other specified postprocedural states Category: Surgical Plan: Continues with 25-30 mL fluid daily in the collection bulb. This has been decreasing on a weekly basis. I suspect we will be able to remove the drain at her next visit. Continue antibiotics.
== END 2025-02-19 13:32 | disposition home or self-care (01) ==
LOC: HO.HBS 12:46
PROVIDERS: PCP Internal Medicine; Visit Provider Physician Assistant Surgical
DX: Z98.890 Other specified postprocedural states (principal)
CPT/HCPCS: 99024

== ENCOUNTER → 2025-02-19 12:45 | Outpatient (BNVA) | payer OTHER, SELFPAY | PROVIDERS: PCP Internal Medicine; Visit Provider Physician Assistant Surgical | DX: Z48.817 Encounter for surgical aftercare following surgery on the skin and subcutaneous tissue (principal); Z98.890 Other specified postprocedural states | CPT/HCPCS: 99212 ==

== ENCOUNTER 2025-02-24 12:52 | Outpatient (AMB) | payer OTHER, SELFPAY ==
[2025-02-24 13:13] VITALS: BP 107/63; PULSE 79; TEMP 37.8; O2SAT 79
--- NOTE | 2025-02-24 13:13 | A.OFFVIS_ITS ---
VS Expanded 02/24/25 13:13 BP 107/63 Blood Pressure Location Rt brachial Blood Pressure Position Sitting Pulse 79 Pulse Source Pulse Oximeter Temp 100.0 F Temperature Source Temporal Artery Scan Pulse Oximetry 79 L Oxygen Delivery Method Room Air Intake Visit Reasons: (OV) s/p Panniculectomy 01/20/25 Allergies erythromycin base [From Pediazole] Allergy (Severe, Verified 02/04/25 12:59) Unresponsive, cold, clammy (as an ) sulfisoxazole [From Pediazole] Allergy (Severe, Verified 02/04/25 12:59) Unresponsive, cold, clammy (as an infant) strawberry Allergy (Intermediate, Verified 02/04/25 12:59) Hives Cephalosporins Allergy (Verified 02/04/25 12:59) Abdominal Pain Macrolide Antibiotics Allergy (Verified 02/04/25 12:59) Unknown Penicillins [PCN] Allergy (Verified 02/04/25 12:59) Unknown Augmentin Allergy (Intermediate, Uncoded 02/04/25 12:59) hives HPI Comments Details: Patient is a pleasant 34-year-old female who returns to the office today in follow-up. She is status post panniculectomy performed on 01/20/2025. She reports approximately 15-20 mL of serous fluid from the collection bulb over the last 5 days. She continues antibiotics. Has no complaints today. 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 Father Diabetes Social History Household Members: Family Housing: House Are you a primary intensive care nurse to a significant other at home: Yes (children, will have family help post-op) Do you presently have visiting nurse or other home services: Yes (Paula BIGGS) 75 years or older and lives alone: No Alcohol intake: current Alcohol intake frequency: holidays/special occasions only Patient Tobacco Use Status: Former Tobacco user Tobacco use type: Cigarette Second Hand Smoke Exposure: No Advance Directives Date on File: 01/22/25 service: No Physical Exam Vital Signs: Last Vital Signs Temp 100.0 F 02/24/25 13:13 Pulse 79 02/24/25 13:13 BP 107/63 02/24/25 13:13 Pulse Ox 79 L 02/24/25 13:13 Oxygen Delivery Method Room Air 02/24/25 13:13 Skin Other: Transverse abdominal incision and umbilical incisions all healing nicely. No evidence of dehiscence or infection. Assessment & Plan Assessment & Plan (1) S/P panniculectomy: Code(s): Z98.890 - Other specified postprocedural states Category: Surgical Plan: Drain removed without difficulty. Dry clean dressing placed. Patient advised to avoid showering for 48 hours. Keep the insertion site clean, dry, covered. Continue antibiotics for another week. Return to clinic as scheduled
--- OUTSIDE RECORDS SUMMARY | 2025-02-24 15:08 | XMS_ITS | Encounter Summary ---
Author Organization [facility] [address] Address [address] [place] [address] Care Team Providers Care Tortilla Maker Name Role Phone Armin Kline MD Primary Care Provider Encounter Details Date Type Department Care Team (Late st Contact Info) Description 02/05/2025 Telephone Adult Medicine [facility] [address] [place] [address] Armin Kline MD [address] [place] [address] Social History Tobacco Use Types Packs/Day Years [...] for your loved ones. For example, child specialist or elderly care for an older [...] Appointment Ultrasound - [facility] [address] [place] [address] 04/06/2025 2:00 PM EDT Office Visit Obstetrics and Gynecology - [address] [place] [phone] Cinthia Franklin PA [address] [place] [address] 05/11/2025 9:30 AM EDT Office Visit Adult Medicine [facility] [address] [place] [phone] Armin Kline MD [address] [place] [address] documented as of this encounter Visit Diagnoses Not on filedocumented in this encounter Care Teams Tortilla Maker Relationship Specialty Start Date End Date Armin Kline MD [address] [place] [address] PCP - General Internal Medicine 10/05/24 documented as of this encounter
--- OUTSIDE RECORDS SUMMARY | 2025-02-24 15:08 | XMS_ITS | Encounter Summary ---
Author Organization [facility] Address [address] [place] [address] Care Team Providers Care Audit Control Clerk Name Role Phone Armin Kline MD Primary Care Provider Reason for Visit * Reason Comments HOME HEALTH CERT Encounter Details Date Type Department Care Team (Late st Contact Info) Description 02/10/2025 Billing Patient Not Present Adult Medicine [facility] [address] [place] [address] Armin Kline MD [address] [place] [address] Social History Tobacco Use Types Packs/Day Years [...] EDT Appointment Ultrasound - [facility] [address] [place] [address] 04/06/2025 2:00 PM EDT Office Visit Obstetrics and Gynecology - [address] [place] [phone] Cinthia Franklin PA [address] [place] [address] 05/11/2025 9:30 AM EDT Office Visit Adult Medicine [address] [phone] Armin Kline MD [address] [place], [place] documented as of this encounter Visit Diagnoses Not on filedocumented in this encounter Care Teams Audit Control Clerk Relationship Specialty Start Date End Date Armin Kline MD [address] [place] [address] PCP - General Internal Medicine 10/05/24 documented as of this encounter
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
== END 2025-02-24 13:36 | disposition home or self-care (01) ==
LOC: HO.HBS 12:52
PROVIDERS: PCP Internal Medicine; Visit Provider Physician Assistant Surgical
DX: Z98.890 Other specified postprocedural states (principal)
CPT/HCPCS: 99024

== ENCOUNTER → 2025-02-24 12:52 | Outpatient (BNVA) | payer OTHER, SELFPAY | PROVIDERS: PCP Internal Medicine; Visit Provider Physician Assistant Surgical | DX: Z48.817 Encounter for surgical aftercare following surgery on the skin and subcutaneous tissue (principal); Z98.890 Other specified postprocedural states | CPT/HCPCS: 99212 ==

== ENCOUNTER 2025-03-04 13:06 | Outpatient (AMB) | payer OTHER, SELFPAY ==
--- NOTE | 2025-03-04 13:09 | A.OFFVIS_ITS ---
VS Expanded 03/04/25 13:20 BP 108/67 Blood Pressure Location Rt brachial Blood Pressure Position Sitting Pulse 79 Pulse Source Pulse Oximeter Temp 96.7 F L Temperature Source Temporal Artery Scan Pulse Oximetry 99 Oxygen Delivery Method Room Air Height 5 ft 5 in Weight 139 lb 6.4 oz BMI 23.2 Body Fat % 16.3 Body Fat Mass 22.8 Fat Free Mass 116.6 Visceral Fat Rating 0 Body Water % 0 Body Water Mass 3.6 Muscle Mass/Score 110.6 Basal Metabolic Rate/Score 1,534 Intake Visit Reasons: (OV) s/p Panniculectomy 01/20/25 Allergies erythromycin base [From Pediazole] Allergy (Severe, Verified 02/04/25 12:59) Unresponsive, cold, clammy (as an ) sulfisoxazole [From Pediazole] Allergy (Severe, Verified 02/04/25 12:59) Unresponsive, cold, clammy (as an infant) strawberry Allergy (Intermediate, Verified 02/04/25 12:59) Hives Cephalosporins Allergy (Verified 02/04/25 12:59) Abdominal Pain Macrolide Antibiotics Allergy (Verified 02/04/25 12:59) Unknown Penicillins [PCN] Allergy (Verified 02/04/25 12:59) Unknown Augmentin Allergy (Intermediate, Uncoded 02/04/25 12:59) hives HPI Comments Details: Patient is a pleasant 35-year-old female who returns to the office today in follow-up. She is status post panniculectomy performed on 01/20/2025. Drain was removed last week. She completed antibiotics. She offers no complaints today. 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: Yes (children, will have family help post-op) Do you presently have visiting nurse or other home services: Yes (Paula BIGGS) 75 years or older and lives alone: No Alcohol intake: current Alcohol intake frequency: holidays/special occasions only Patient Tobacco Use Status: Former Tobacco user Tobacco use type: Cigarette Second Hand Smoke Exposure: No Advance Directives Date on File: 01/22/25 service: No Physical Exam Vital Signs: Last Vital Signs Temp 96.7 F L 03/04/25 13:20 Pulse 79 03/04/25 13:20 BP 108/67 03/04/25 13:20 Pulse Ox 99 03/04/25 13:20 Oxygen Delivery Method Room Air 03/04/25 13:20 BMI result Body Mass Index 23.2 Skin Other: Transverse abdominal incision and umbilical incision all healed nicely. Assessment & Plan Assessment & Plan (1) S/P panniculectomy: Code(s): Z98.890 - Other specified postprocedural states Category: Surgical Plan: Patient is doing well. 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 She does not do any significant lifting. She was given a note that she may return with lifting restrictions of no greater than 15 lb until April 21. She will continue to wear her abdominal binder. She returned to the office in 2 weeks.
[2025-03-04 13:20] VITALS: BP 108/67; PULSE 79; TEMP 35.9; O2SAT 99; BMI 23.2
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
--- OUTSIDE RECORDS SUMMARY | 2025-03-04 15:32 | XMS_ITS | Encounter Summary ---
Author Organization [facility] Address [address] [place] [address] Care Team Providers Care Physical Integration Practitioner Name Role Phone Armin Kline MD Primary Care Provider Reason for Visit * Reason Comments HOME HEALTH CERT Encounter Details Date Type Department Care Team (Late st Contact Info) Description 02/10/2025 Billing Patient Not Present Adult Medicine [facility] [address] [place] [address] Armin Kline MD [address] [place] [address] Social History Tobacco Use Types Packs/Day Years [...] care for your loved ones. For example, professor of early childhood education or elderly care for an older adult? [...] Upcoming Encounters Date Type Department Care Team ([facility] st Contact Info) Description 04/05/2025 9:45 AM EDT Appointment Ultrasound - [facility] [address] [facility] [facility] [place] [address] 04/06/2025 2:00 PM EDT Office Visit Obstetrics and Gynecology - [address] [place] [phone] Cinthia Franklin PA [address] [place] [address] 05/11/2025 9:30 AM EDT Office Visit Adult Medicine [address] [phone] Armin Kline MD [address] [place], [place] documented as of this encounter Visit Diagnoses Not on filedocumented in this encounter Care Teams Physical Integration Practitioner Relationship Specialty Start Date End Date Armin Kline MD [address] [place] [address] PCP - General Internal Medicine 10/05/24 documented as of this encounter
--- OUTSIDE RECORDS SUMMARY | 2025-03-04 15:32 | XMS_ITS | Encounter Summary ---
Author Organization [facility] Address [address] [place] [address] Care Team Providers Care Value Stream Leader Name Role Phone Armin Kline MD Primary Care Provider Encounter Details Date Type Department Care Team (Late st Contact Info) Description 02/05/2025 Telephone Adult Medicine [facility] [address] [place] [address] Armin Kline MD [address] [place] [address] Social History Tobacco Use Types Packs/Day Years [...] for your loved ones. For example, child welfare specialist or elderly care for an older [...] Appointment Ultrasound - [facility] [address] [place] [address] 04/06/2025 2:00 PM EDT Office Visit Obstetrics and Gynecology - [address] [place] [address] Cinthia Franklin PA [address] [place] [address] 05/11/2025 9:30 AM EDT Office Visit Adult Medicine [facility] [address] [place] [phone] Armin Kline MD [address] [place] [address] documented as of this encounter Visit Diagnoses Not on filedocumented in this encounter Care Teams Value Stream Leader Relationship Specialty Start Date End Date Armin Kline MD [address] [place] [address] PCP - General Internal Medicine 10/05/24 documented as of this encounter
== END 2025-03-04 13:37 | disposition home or self-care (01) ==
LOC: HO.HBS 13:07
PROVIDERS: PCP Internal Medicine; Visit Provider Physician Assistant Surgical
DX: Z98.890 Other specified postprocedural states (principal)
CPT/HCPCS: 99024

== ENCOUNTER → 2025-03-04 13:06 | Outpatient (BNVA) | payer OTHER, SELFPAY | PROVIDERS: PCP Internal Medicine; Visit Provider Physician Assistant Surgical | DX: Z48.817 Encounter for surgical aftercare following surgery on the skin and subcutaneous tissue (principal); Z98.890 Other specified postprocedural states | CPT/HCPCS: 99212 ==

== ENCOUNTER 2025-03-26 11:05 | Outpatient (AMB) | payer OTHER, SELFPAY ==
--- NOTE | 2025-03-26 11:06 | A.OFFVIS_ITS ---
VS Expanded 03/26/25 11:18 BP 114/78 Blood Pressure Location Rt brachial Blood Pressure Position Sitting Pulse 72 Pulse Source Pulse Oximeter Temp 97.3 F Temperature Source Temporal Artery Scan Pulse Oximetry 100 Oxygen Delivery Method Room Air Height 5 ft 5 in Weight 140 lb 6.4 oz BMI 23.4 Body Fat % 17.1 Body Fat Mass 24.0 Fat Free Mass 116.2 Visceral Fat Rating 1.0 Body Water % 59.3 Body Water Mass 83.2 Muscle Mass/Score 110.2 Basal Metabolic Rate/Score 1,531 Intake Visit Reasons: (OV) s/p Panniculectomy 01/20/25 Chemistry Teacher Required: No Allergies erythromycin base [From Pediazole] Allergy (Severe, Verified 03/26/25 11:13) Unresponsive, cold, clammy (as an ) sulfisoxazole [From Pediazole] Allergy (Severe, Verified 03/26/25 11:13) Unresponsive, cold, clammy (as an infant) strawberry Allergy (Intermediate, Verified 03/26/25 11:13) Hives Cephalosporins Allergy (Verified 03/26/25 11:13) Abdominal Pain Macrolide Antibiotics Allergy (Verified 03/26/25 11:13) Unknown Penicillins [PCN] Allergy (Verified 03/26/25 11:13) Unknown Augmentin Allergy (Intermediate, Uncoded 02/04/25 12:59) hives Medication List - Last Reconciled 03/26/25 by ARON Gomez bupropion HCl XL 150 mg PO DAILY docusate sodium (Colace) 100 mg PO DAILY ferrous sulfate 325 mg PO DAILY melatonin 10 mg PO BEDTIME PRN nicotine 7 mg transdermal DAILY 30 days propranolol 10 mg PO BID sumatriptan succinate (Imitrex) take 1 tab at onset of headache; if no relief may repeat 1 tab after at least 2 hrs; max = 4 tabs/24 hr topiramate 50 mg PO BID HPI Comments Details: 35-year-old female returns to the office today in follow-up. She is approximately 2 months post panniculectomy performed on 01/20/2025. She reports that she has noticed some swelling in the lower abdomen if she is not wearing her abdominal binder. She has returned to work. She states that when she does wear the binder swelling reduces. She additionally has been modifying her meal plan in that she has intermittently had some deli ham with cottage cheese although states that this was only once. 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 Father Diabetes Social History Household Members: Family Housing: House Are you a primary care transitions manager to a significant other at home: Yes (children, will have family help post-op) Do you presently have visiting nurse or other home services: Yes (Paula BIGGS) 75 years or older and lives alone: No Alcohol intake: current Alcohol intake frequency: holidays/special occasions only Patient Tobacco Use Status: Former Tobacco user Tobacco use type: Cigarette Second Hand Smoke Exposure: No Advance Directives Date on File: 01/22/25 service: No Physical Exam Skin Other: Transverse and abdominal incisions have healed. No appreciable fluid collection in the suprapubic region Assessment & Plan Assessment & Plan (1) S/P panniculectomy: Code(s): Z98.890 - Other specified postprocedural states Category: Surgical Plan: Continue to wear the abdominal binder at all times except while showering or sleeping. She may slowly resume stationary bike. Told to avoid deli meats and foods that are higher in salt. We will have her return to the office in approximately 1 month
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
[2025-03-26 11:18] VITALS: BP 114/78; PULSE 72; TEMP 36.3; O2SAT 100; BMI 23.4
== END 2025-03-26 11:33 | disposition home or self-care (01) ==
LOC: HO.HBS 11:05
PROVIDERS: PCP Internal Medicine; Visit Provider Physician Assistant Surgical
DX: Z98.890 Other specified postprocedural states (principal)
CPT/HCPCS: 99024

== ENCOUNTER → 2025-03-26 11:05 | Outpatient (BNVA) | payer OTHER, SELFPAY | PROVIDERS: PCP Internal Medicine; Visit Provider Physician Assistant Surgical | DX: Z98.890 Other specified postprocedural states (principal); Z87.2 Personal history of diseases of the skin and subcutaneous tissue | CPT/HCPCS: 99212 ==

== ENCOUNTER 2025-04-28 09:07 | Outpatient (AMB) | payer OTHER, SELFPAY ==
--- NOTE | 2025-04-28 09:09 | A.OFFVIS_ITS ---
VS Expanded 04/28/25 09:17 BP 107/67 Blood Pressure Location Rt brachial Blood Pressure Position Sitting Pulse 81 Pulse Source Pulse Oximeter Temp 97.9 F Temperature Source Temporal Artery Scan Pulse Oximetry 98 Oxygen Delivery Method Room Air Height 5 ft 5 in Weight 141 lb 6.4 oz BMI 23.5 Body Fat % 17.3 Body Fat Mass 24.4 Fat Free Mass 116.8 Visceral Fat Rating 1.0 Body Water % 59.1 Body Water Mass 83.6 Muscle Mass/Score 110.8 Basal Metabolic Rate/Score 1,540 Intake Visit Reasons: (OV) s/p Panniculectomy 01/20/25 Allergies erythromycin base (From Pediazole) Allergy (Severe, Verified 03/26/25 11:13) Unresponsive, cold, clammy (as an infant) sulfisoxazole (From Pediazole) Allergy (Severe, Verified 03/26/25 11:13) Unresponsive, cold, clammy (as an infant) strawberry Allergy (Intermediate, Verified 03/26/25 11:13) Hives Cephalosporins Allergy (Verified 03/26/25 11:13) Abdominal Pain Macrolide Antibiotics Allergy (Verified 03/26/25 11:13) Unknown Penicillins (PCN) Allergy (Verified 03/26/25 11:13) Unknown Augmentin Allergy (Intermediate, Uncoded 02/04/25 12:59) hives HPI Comments Details: Pleasant 35-year-old female, 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 She is now approximately 3 months post panniculectomy. Weight today is 141.4 lb with a BMI of 23.5. She is dissatisfied with persistent excess skin about the mid abdomen. She reports she has had rash within the umbilicus for which she applied clotrimazole cream with improvement. [facility] Medical History (Updated 04/28/25 @ 09:45 by ARON Gomez) Excess skin Overweight Congenital intra-abdominal adhesions BMI 32.0-32.9,adult Arthritis Back pain Abnormal Pap smear of cervix Constipation Kidney stones Migraines Cough Scoliosis Hypertension Rheumatoid arthritis Insomnia Anxiety Depression DJD (degenerative joint disease) GERD (gastroesophageal reflux disease) Asthma BMI 38.0-38.9,adult Surgical History (Updated 03/26/25 @ 11:13 by Damaris Townsend CMA) S/P panniculectomy Obesity History of sleeve gastrectomy (11/21/23) History of loop electrical excision procedure (LEEP) BMI 35.0-35.9,adult Hx of tonsillectomy History of ear surgery Family History Mother No problems noted. Father Diabetes Social History Household Members: Family Housing: House Are you a primary career technical counselor to a significant other at home: Yes (children, will have family help post-op) Do you presently have visiting nurse or other home services: Yes (Paula BIGGS) 75 years or older and lives alone: No Alcohol intake: current Alcohol intake frequency: holidays/special occasions only Patient Tobacco Use Status: Former Tobacco user Tobacco use type: Cigarette Second Hand Smoke Exposure: No Advance Directives Date on File: 01/22/25 service: No Physical Exam Skin Other: Transverse abdominal incision healed nicely. Umbilical incision has healed nicely. Excess skin noted about the mid abdomen without active rash Assessment & Plan Assessment & Plan (1) Excess skin: Code(s): L98.7 - Excessive and redundant skin and subcutaneous tissue Category: Medical Plan: Patient continues to have some excess skin of the mid abdomen. This causes an involution at the umbilicus for which she reports rash. She has used clotrimazole cream with success. Encouraged to keep the area open to air and avoid excess moisture. She will apply clotrimazole as needed. We will have her return to the office in approximately 3 months
[2025-04-28 09:17] VITALS: BP 107/67; PULSE 81; TEMP 36.6; O2SAT 98; BMI 23.5
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
== END 2025-04-28 09:46 | disposition home or self-care (01) ==
LOC: HO.HBS 09:08
PROVIDERS: PCP Internal Medicine; Visit Provider Physician Assistant Surgical
DX: L98.7 Excessive and redundant skin and subcutaneous tissue (principal)
CPT/HCPCS: 99213

== ENCOUNTER → 2025-04-28 09:07 | Outpatient (BNVA) | payer OTHER, SELFPAY | PROVIDERS: PCP Internal Medicine; Visit Provider Physician Assistant Surgical | DX: L98.7 Excessive and redundant skin and subcutaneous tissue (principal) | CPT/HCPCS: 99212 ==

== ENCOUNTER 2025-07-28 13:00 | Outpatient (AMB) | payer OTHER, SELFPAY ==
--- NOTE | 2025-07-28 13:03 | A.OFFVIS_ITS ---
VS Expanded 07/28/25 13:22 BP 109/75 Blood Pressure Location Rt brachial Blood Pressure Position Sitting Pulse 72 Pulse Source Pulse Oximeter Temp 97.0 F Temperature Source Temporal Artery Scan Pulse Oximetry 95 Oxygen Delivery Method Room Air Height 5 ft 5 in Weight 141 lb 3.2 oz BMI 23.5 Body Fat % 16.6 Body Fat Mass 23.4 Fat Free Mass 117.8 Visceral Fat Rating 1.0 Body Water % 59.7 Body Water Mass 84.2 Muscle Mass/Score 111.8 Basal Metabolic Rate/Score 1,549 Intake Visit Reasons: (OV) s/p Panniculectomy 01/20/25 & PO LSG 11/21/23 Allergies erythromycin base (From Pediazole) Allergy (Severe, Verified 07/28/25 13:12) Unresponsive, cold, clammy (as an infant) sulfisoxazole (From Pediazole) Allergy (Severe, Verified 07/28/25 13:12) Unresponsive, cold, clammy (as an infant) strawberry Allergy (Intermediate, Verified 07/28/25 13:12) Hives Cephalosporins Allergy (Verified 07/28/25 13:12) Abdominal Pain Macrolide Antibiotics Allergy (Verified 07/28/25 13:12) Unknown Penicillins (PCN) Allergy (Verified 07/28/25 13:12) Unknown Augmentin Allergy (Intermediate, Uncoded 02/04/25 12:59) hives Medication List - Last Reconciled 07/28/25 by ARON Cazares bupropion HCl XL 150 mg PO DAILY docusate sodium (Colace) 100 mg PO DAILY ferrous sulfate 325 mg PO DAILY melatonin 10 mg PO BEDTIME PRN nicotine 7 mg transdermal DAILY 30 days propranolol 10 mg PO BID sumatriptan succinate (Imitrex) take 1 tab at onset of headache; if no relief may repeat 1 tab after at least 2 hrs; max = 4 tabs/24 hr topiramate 50 mg PO BID HPI Comments Details: Pt is 6mo s/p panniculectomy as well as s/p LSG 11/21/2023. She continues to be unhappy with results of panniculectomy and is dissatisfield with the cosmetic result. She feels that the skin should have been pulled tighter. She reports using clotrimazole cream for rashes around belly button. She has had difficulty affording shakes and bars so was eating more whole foods like cottage cheese. She snacks on cashews, celery with almond butter. She has not been exercising as much as previous. 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 Father Diabetes Social History Household Members: Family Housing: House Are you a primary resident care manager rn to a significant other at home: Yes (children, will have family help post-op) Do you presently have visiting nurse or other home services: Yes (Paula BIGGS) 75 years or older and lives alone: No Alcohol intake: current Alcohol intake frequency: holidays/special occasions only Patient Tobacco Use Status: Former Tobacco user Tobacco use type: Cigarette Second Hand Smoke Exposure: No Advance Directives Date on File: 01/22/25 service: No Physical Exam Const General: cooperative, comfortable and no acute distress Orientation/consciousness: patient oriented x3 GI Other: Transverse abdominal incision healed nicely. Umbilical incision has healed nicely. Excess skin noted about the mid abdomen without active rash Neuro General: patient oriented x3 Assessment & Plan Assessment & Plan (1) S/P laparoscopic sleeve gastrectomy: Code(s): Z98.84 - Bariatric surgery status Category: Surgical (2) S/P panniculectomy: Code(s): Z98.890 - Other specified postprocedural states Category: Surgical Plan Patient continues to have some excess skin of the mid abdomen. This causes an involution at the umbilicus for which she reports rash. She has used clotrimazole cream with success. She will apply as needed. She has already seen a plastic surgeon for consultation but the cost of the procedure is prohibitive for her (she quotes $10k). Encouraged pt to resume exercise. Encouraged pt to resume high protein meal plan with shakes and bars if able. If too expensive, choose nonfat dairy like cottage cheese or yogurt, avoid cashews and corn nuts. RTC 4mo for annual visit.
[2025-07-28 13:22] VITALS: BP 109/75; PULSE 72; TEMP 36.1; O2SAT 95; BMI 23.5
--- OUTSIDE RECORDS SUMMARY | 2025-07-28 15:26 | XMS_ITS | Encounter Summary ---
Author Organization [facility] Address [address] [place] [address] Care Team Providers Care Film Crew Member Name Role Phone Armin Kline MD Primary Care Provider Reason for Visit * Reason Onset Date Comments medication review 07/14/2025 Encounter Details Date Type Department Care Team (Late st Contact Info) Description 07/14/2025 Telephone Obstetrics and Gynecology - [place] [id number] [place] [phone] Cinthia Franklin, PA [address] [place] [address] Social History Tobacco Use Types Packs/Day Years [...] for your loved ones. For example, children's institution attendant or elderly care for an older [...] as of this encounter Progress Notes * Poornima Holland RN - 07/14/2025 3:38 PM EDT Patient had lmp 06/20-06/24, 06/06-06/10/2025. Patient reports she is very tired, low energy-she has beenon iron supplements since January and vitamin c along with it. Will send message to provider to see if we can maybe refer her to hem onc for possible infusion * Lucy Back - 07/14/2025 3:28 PM EDT Pt calling requesting callback. Pt wants to know why she is being prescribed rx iron,carbonyl-vitamin C (Vitron-C) 65 mg iron- 125 mg . Pls advise documented in this encounter Plan of Treatment Upcoming Encounters Date Type Department Care Team (Late st Contact Info) Description 08/04/2025 4:00 PM EDT Appointment Radiology Department - [address] [phone] documented as of this encounter Visit Diagnoses Not on filedocumented in this encounter Care Teams Film Crew Member Relationship Specialty Start Date End Date Armin Kline MD [address] [place] [address] PCP - General Internal Medicine 10/05/24 documented as of this encounter
--- OUTSIDE RECORDS SUMMARY | 2025-07-28 15:26 | XMS_ITS ---
Author Name [facility] Organization Unknown Care Team Organization Name Specialty Phone Email Start Date End Da te [facility] HAVEN NEWELL Primary Care 04/12/2023 06/22/2024 [facility] Maisha Guevara Primary Care 09/11/20222023
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
--- OUTSIDE RECORDS SUMMARY | 2025-07-28 15:26 | XMS_ITS | Encounter Summary ---
Author Organization [facility] [address] Address [address] [place] [address] Care Team Providers Care Wreath Maker Name Role Phone Armin Kline MD Primary Care Provider Reason for Visit * Reason Comments HOME HEALTH CERT Encounter Details Date Type Department Care Team (Late st Contact Info) Description 02/10/2025 Billing Patient Not Present Adult Medicine [facility] [address] [place], [place] [phone] Armin Kline MD [address] [place], [place] Social History Tobacco Use Types Packs/Day Years [...] for your loved ones. For example, child daycare worker or elderly care for an older adult? [...] Upcoming Encounters Date Type Department Care Team ([facility] st Contact Info) Description 08/04/2025 4:00 PM EDT Appointment Radiology Department [address] [phone] documented as of this encounter Visit Diagnoses Not on filedocumented in this encounter Care Teams Wreath Maker Relationship Specialty Start Date End Date Armin Kline MD [address] [place] [phone] PCP - General Internal Medicine 10/05/24 documented as of this encounter
== END 2025-07-28 13:48 | disposition home or self-care (01) ==
LOC: HO.HBS 13:01
PROVIDERS: PCP Internal Medicine; Visit Provider Physician Assistant Surgical
DX: L98.7 Excessive and redundant skin and subcutaneous tissue (principal); Z98.84 Bariatric surgery status; Z98.890 Other specified postprocedural states
CPT/HCPCS: 99213

== ENCOUNTER → 2025-07-28 13:00 | Outpatient (BNVA) | payer OTHER, SELFPAY | PROVIDERS: PCP Internal Medicine; Visit Provider Physician Assistant Surgical | DX: L98.7 Excessive and redundant skin and subcutaneous tissue (principal); R21 Rash and other nonspecific skin eruption; E66.9 Obesity, unspecified; Z68.23 Body mass index [BMI] 23.0-23.9, adult; Z90.3 Acquired absence of stomach [part of]; Z98.890 Other specified postprocedural states | CPT/HCPCS: 99212 ==